=== PATIENT | female | born 1940 | race Caucasian/White ===

== ENCOUNTER 2019-05-14 09:19 | Outpatient (CLI) | payer MEDICARE, SELFPAY ==
--- NOTE | ~2019-05-14 | MR_ITS ---
EXAMINATION: MR lumbar spine wo con DATE: 05/14/2019 11:48 INDICATION: Low back pain TECHNIQUE: Magnetic resonance imaging (MRI) of the lumbar spine was performed without intravenous con trast. Sequences included sagittal T2-weighted FSE, sagittal T2-weighted FS FSE, sagittal T1-weighted FSE, and axial T2-weighted FSE. COMPARISON: Lumbar spine radiographs dated 02/04/[address] abdomen and pelvis dated 04/11/2019 FINDINGS: 2 mm retrolisthesis L1 on L2, 3 mm retrolisthesis L2 on L3, L3-4 millimeter anterolisthesis L3 on L4, 2-3 mm anterolisthesis L4 on L5 and 7 mm anterolisthesis L5 on S1. Marrow edema associated with an e karthik chronic T12 compression fracture with 20% anterior and central vertebral body height loss. T1 hy perintense hemangioma at L3. Severe disc height loss at L2-L3 and L5-S1. Moderate disc height loss at L3-L4 and mild disc height loss at T10-T11, L1-L2 and L4-L5. The conus medullaris terminates at L1. There is normal signal in the caudal spinal cord. Multiple T2 hyperintense parapelvic cysts at the ri ght kidney. Approximately 1 cm T2 hypointense proteinaceous/hemorrhagic cyst at the mid left kidney w ith corresponding increased density on prior noncontrast CT. Paravertebral soft tissues are otherwise unremarkable. The following disc levels are specifically discussed: T12-L1: The disc does not extend beyond the endplate margin. There is mild left and moderate right fa cet joint osteoarthritis. There is no neural foraminal stenosis. There is mild central canal stenosis resulting primarily from anterior bulging of the posterior epidural fat. L1-L2: Disc is mildly bulging. There is hypertrophy of the ligamentum flavum and anterior bulging of the posterior epidural fat pad. There is mild bilateral facet joint osteoarthritis. There is moderate bilateral neural foraminal stenosis. There is mild central canal stenosis. L2-L3: Disc is bulging. There is hypertrophy of the ligamentum flavum and anterior bulging of the pos terior epidural fat pad. There is moderate bilateral facet joint osteoarthritis. There is moderate to severe right and severe left neural foraminal stenosis. There is severe central canal stenosis. L3-L4: Disc is bulging with superimposed annular fissure and right paracentral disc extrusion which e xtends 7 mm cephalad to the level of the inferior endplate of L3. There is prominent hypertrophy of t he ligamentum flavum. There is moderate left and severe right facet joint osteoarthritis. There is mo derate left and moderate to severe right neural foraminal stenosis. There is moderate to severe centr al canal stenosis with minimal CSF signal surrounding the centrally bunched nerve roots. L4-L5: Annular fissure with broad-based disc extrusion extending from foraminal zone to foraminal zon e with disc material extending a few millimeters cephalad to the level of the inferior endplate of L4 . There is severe bilateral facet joint osteoarthritis. There is moderate left and moderate to severe right neural foraminal stenosis. There is mild central canal stenosis. L5-S1: Annular fissure with extrusion of minimal amount of residual disc material which extends sligh tly beyond the inferior endplate of L5 from foraminal zone to foraminal zone. There is severe bilater al facet joint osteoarthritis. There is moderate bilateral neural foraminal stenosis. There is no camron tral canal stenosis. IMPRESSION: 1. Marrow edema associated with an early chronic T12 compression fracture which was present on radiog raphs dated 02/04/2019. 2. Severe lumbar spondylosis. Reviewed, dictated and finalized at location B. CISE PHYSIOLOGIST CERTIFIED IMPRESSION: 1. Marrow edema associated with an early chronic T12 compression fracture which was present on radiographs dated 02/04/2019. 2. Virgen
[2019-05-14 11:08] LABS: Blood Urea Nitrogen 24 mg/dL (8-26); Estimated Glomerular Filt Rate > 60
== END 2019-05-14 09:20 | disposition home or self-care (01) ==
LOC: ANHIMG 09:22
PROVIDERS: PCP Emergency Medicine
DX: M54.5 Low back pain (principal); M79.89 Other specified soft tissue disorders; M48.54XA Collapsed vertebra, not elsewhere classified, thoracic region, initial encounter for fracture; M47.814 Spondylosis without myelopathy or radiculopathy, thoracic region
CPT/HCPCS: 36415; 72148

== ENCOUNTER 2019-05-14 09:28 | Outpatient (CLI) | payer MEDICARE, SELFPAY ==
--- NOTE | ~2019-05-14 | MR_ITS ---
EXAMINATION: MR brain/brain stem wo/w con EXAM DATE: 05/14/2019 11:49 INDICATION: Meningioma follow-up. TECHNIQUE: Magnetic resonance imaging (MRI) of the brain/brain stem obtained without contrast. Sagit jannet T1, axial diffusion, gradient echo (T2*), T1, T2, FLAIR sequences obtained. Patient was then inj ected with 14 cc intravenous Multihance contrast. Axial and coronal postcontrast T1 weighted sequence s obtained. Correlation is made to CTA brain 01/22/2017. FINDINGS: There is been interval left frontal craniotomy, underlying moderate-sized encephalomalacia. Previously seen mass along the left side of the falx is no longer identified. There is some enhancem ent within the encephalomalacia, difficult to measure given shape of this, but its approximately 10 m m in diameter by 3 mm in thickness. Most likely postoperative scarring/enhancement but if histology o f the resected meningioma was more aggressive then consider 6-12 month follow-up MRI examination. No other areas of abnormal enhancement. There is mild to moderate microangiopathy and cerebral atroph y. No acute infarction, extra-axial collections or hydrocephalus. Bilateral cataract surgery. IMPRESSION: 1. Interval left frontal craniotomy, underlying encephalomalacia containing small region of enhancem ent most likely postoperative scarring but if clinically indicated a follow up 6-12 month MRI should be considered. 2. Age-related findings. Reviewed, dictated and finalized at location A. NDS HANDLER IMPRESSION: 1. Interval left frontal craniotomy, underlying encephalomalacia containing sm all region of enhancement most likely postoperative scarring but if clinically indicated a follow up 6-12 month MRI should be considered. 2. Age-related findings.
== END 2019-05-14 09:29 | disposition home or self-care (01) ==
PROVIDERS: PCP Emergency Medicine
DX: D32.9 Benign neoplasm of meninges, unspecified (principal); G93.89 Other specified disorders of brain; Z98.890 Other specified postprocedural states
CPT/HCPCS: 36415; 70553; 72148; A9577

== ENCOUNTER 2019-08-20 09:27 | Outpatient (CLI) | payer MEDICARE, SELFPAY ==
--- NOTE | ~2019-08-20 | MM_ITS ---
EXAMINATION: MM screening gina BI w bharati HISTORY: Screening mammogram TECHNIQUE: Craniocaudal and mediolateral oblique 3-D tomosynthesis images were obtained and synthetic 2-D images were generated. CAD analysis was submitted and interpreted. COMPARISON: 12/01/2008, 06/21/2007 BREAST PARENCHYMAL COMPOSITION: The breasts are almost entirely fatty. FINDINGS: Scattered benign-appearing calcifications are present. There is no evidence of suspicious m ass, calcification, or architectural distortion to suggest malignancy in either breast. There has bee n no suspicious interval change. IMPRESSION: 1. No mammographic evidence of malignancy. 2. Recommend routine screening mammography while the patient remains in good health. BI-RADS Category 2: Benign finding(s). Reviewed, dictated and finalized at location A. LOADING MACHINE FEEDER IMPRESSION: 1. No mammographic evidence of malignancy. 2. Recommend routine screening mammography while the patient remains in good he alth. BI-RADS Category 2: Benign finding(s).
== END 2019-08-20 09:28 | disposition home or self-care (01) ==
LOC: ANHIMG 09:29
PROVIDERS: PCP Emergency Medicine; Visit Provider Emergency Medicine
DX: Z12.31 Encounter for screening mammogram for malignant neoplasm of breast (principal)
CPT/HCPCS: 77063; 77067

== ENCOUNTER 2020-01-09 14:30 | Outpatient (RCR) | payer MEDICARE, SELFPAY ==
--- NOTE | 2019-12-25 11:16 | PTOPEVAL ---
Thank you for referring Nelly Mcgrath to [facility]. Please review, sign, date and return this plan of care SASHA. Pt referred to therapy due to a complex medical history and impairments. She requires additional skilled therapy to address decreased balance, decreased performance with transfers and walking activities, muscle weakness and tolerance with activities. Recommend additional PT 2x/wk x 6 wk. I agree with and certify that the following plan of care is medically necessary. Referring Physician Date Attending Provider: Selvin Henley MD *PT Outpatient Evaluation Start: 12/25/19 09:58 Freq: Status: Active Protocol: Document 12/25/19 10:00 CAP (Rec: 12/25/19 11:03 CAP [id number]) Therapy Assessment Status Assessment Status Assessment Status Evaluation Outpatient Past Medical History Past Medical History Source of Past Medical History Patient Neurological History Hx Other Neurological Disorders Yes: brain tumor 04/18 Cardiovascular History Hx Hypertension Yes Respiratory History Hx Sleep Apnea Yes: cpap machine Gastrointestinal History Hx Gastroesophageal Reflux Disease Yes Genitourinary History Hx Urinary Tract Infection Yes Hx Other Genitourinary Disorders Yes: incontinece Musculoskeletal History Hx Back Pain Yes Hx Joint Replacement Yes: haritha TKR Hematological History Hx Other Hematological Disorders Yes: DVT right leg HEENT History Hx Cataracts Yes Other History 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 Family She had therapy for her back pain in 2016 with some relief of her back pain. Reports she is stiff in the morning for her back and knee. She fell down last December at [facility] when the floor was wet. She had a compression fracture of ~T12. She wore a back brace for 6 wks. She has not had a f/u xray of her back fracture. She denies any falls at home in the past 6 months She spends most of her day in
--- NOTE | 2020-01-01 14:41 | PCPTNOTE ---
Patient came in, wasn't feeling well & decided she couldn't stay. So, she cancelled scheduled appointment this date.[ ]
--- NOTE | 2020-01-13 08:42 | PCPTNOTE ---
Patient called & cancelled scheduled appointment this date due to sick.
--- NOTE | 2020-01-15 09:46 | PCPTNOTE ---
Patient called & cancelled scheduled appointment this date due to not feeling well. She cancelled her remaining appointments. Will plan to DC pt at this time.
--- NOTE | 2020-01-15 10:19 | PTOPEVAL ---
Thank you for referring Nelly Mcgrath to [facility]. Please review, sign, date and return this plan of care SASHA. I agree with and certify that the following plan of care is medically necessary. Referring Physician Date Admitting Provider: Attending Provider: Selvin Henley MD Referring Provider: *PT Outpatient Evaluation Start: 12/25/19 09:58 Freq: Status: Active Protocol: Document 12/25/19 10:00 CAP (Rec: 12/25/19 11:03 CAP [email or web address]) Therapy Assessment Status Assessment Status Assessment Status Evaluation Outpatient Past Medical History Past Medical History Source of Past Medical History Patient Neurological History Hx Other Neurological Disorders Yes: brain tumor 04/18 Cardiovascular History Hx Hypertension Yes Respiratory History Hx Sleep Apnea Yes: cpap machine Gastrointestinal History Hx Gastroesophageal Reflux Disease Yes Genitourinary History Hx Urinary Tract Infection Yes Hx Other Genitourinary Disorders Yes: incontinece Musculoskeletal History Hx Back Pain Yes Hx Joint Replacement Yes: haritha TKR Hematological History Hx Other Hematological Disorders Yes: DVT right leg HEENT History Hx Cataracts Yes Other History 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 Family She had therapy for her back pain in 2016 with some relief of her back pain. Reports she is stiff in the morning for her back and knee. She fell down last December at [facility] when the floor was wet. She had a compression fracture of ~T12. She wore a back brace for 6 wks. She has not had a f/u xray of her back fracture. She denies any falls at home in the past 6 months She spends most of her day in a recliner, then is stiff and left leg not wanting to work. Pt tends to look down when
--- NOTE | 2020-01-15 10:19 | PCPTNOTE ---
Admitting Provider: Attending Provider: Selvin Henley MD Patient:Nelly Mcgrath Date of :1940 Patient has not returned for any further treatments since 01/09/2020, therefore she will be discharged at this time. Patient?s initial visit was on 12/25/2019 10:15 and she had a total of 4 visits then she called to cancel her remaining appointments. Limited progress towards improved function due to only 4 visits of therapy. The goals have been not met. Thank you for referring this patient to [facility]. Please review, sign, date and return this discharge summary SASHA. I have been updated about the patient's current status and I agree with discharge from the above service at this time. Referring Physician Date
== END 2020-03-09 14:05 | disposition home or self-care (01) ==
LOC: ANHPT 14:30
PROVIDERS: PCP Emergency Medicine; Visit Provider Emergency Medicine
DX: M54.9 Dorsalgia, unspecified (principal); M25.559 Pain in unspecified hip; G89.29 Other chronic pain; R53.81 Other malaise; R53.1 Weakness
CPT/HCPCS: 97110; 97163; 97530

== ENCOUNTER 2020-11-24 09:48 | Outpatient (CLI) | payer MEDICARE, SELFPAY ==
--- NOTE | ~2020-11-24 | MM_ITS ---
EXAMINATION: MM screening gina BI w bharati HISTORY: Screening mammogram TECHNIQUE: Craniocaudal and mediolateral oblique 3-D tomosynthesis images were obtained and synthetic 2-D images were generated. CAD analysis was submitted and interpreted. COMPARISON: , 12/01/2008 bilateral digital screening mammogram examinations BREAST PARENCHYMAL COMPOSITION: The breasts are almost entirely fatty. FINDINGS: There is no evidence of suspicious mass, calcification, or architectural distortion to sugg est malignancy in either breast. There has been no suspicious interval change. IMPRESSION: 1. No mammographic evidence of malignancy. 2. Recommend routine screening mammography in one year. BI-RADS Category 1: Negative Reviewed, dictated and finalized at location A.
== END 2020-11-24 09:49 | disposition home or self-care (01) ==
LOC: ANHIMG 09:51
PROVIDERS: PCP Emergency Medicine; Visit Provider Emergency Medicine
DX: Z12.31 Encounter for screening mammogram for malignant neoplasm of breast (principal)
CPT/HCPCS: 77063; 77067

== ENCOUNTER 2020-11-28 10:56 | Emergency (ER) | payer MEDICARE, SELFPAY ==
[2020-11-28 10:59] VITALS: BP 141/65; PULSE 71; RESP 18; TEMP 36.6; O2SAT 97
--- NOTE | 2020-11-28 11:56 | ED.DENTAL ---
HPI - Dental/Oral General Chief complaint: Dental/Oral Stated complaint: right eye swelling Time Seen by Provider: 11/28/20 11:29 Source: patient and family Mode of arrival: ambulatory Limitations: no limitations History of Present Illness HPI Narrative: This is an 80-year-old female that presents to the emergency department for right-sided facial swelling present since this morning. Reports she is currently on clindamycin for a dental infection. Reports when she woke up this morning she noted some right-sided redness below her eye. She has been taking antibiotic as prescribed. Denies fevers, dysphagia, or dyspnea. MD Complaint: tooth pain Location: Tooth # (3) Related Data Home Medications Medication Instructions Recorded Confirmed cetirizine 10 mg tablet 5 mg PO DAILY PRN 06/19/19 10/22/20 gabapentin 100 mg capsule 100 mg PO TID 06/19/19 10/22/20 multivitamin 1 tablet PO .Daily with food 06/19/19 10/22/20 tablet temazepam 15 mg capsule 15 mg PO .Daily at bedtime cap 06/19/19 10/22/20 tramadol 50 mg tablet 50 mg PO Q6H PRN 06/19/19 10/22/20 vit C 250 mg-vit E 90 mg-zinc 40 1 tablet PO .Daily cap 06/19/19 10/22/20 mg-copper 1 [id number] capsule calcium carbonate 500 mg calcium See Rx Instructions .ROUTE .COMPLEX 12/15/19 10/22/20 (1,250 mg) tablet docusate sodium 250 mg capsule 250 mg PO DAILY 12/17/19 10/22/20 melatonin 1 mg tablet 1 mg PO DAILY PRN tablet 12/17/19 10/22/20 polyethylene glycol 400 0.25 % eye See Rx Instructions EACH EYE BID 12/17/19 10/22/20 drops ml diphenhydramine HCl 25 mg capsule 25 mg PO ONCE PRN cap 04/27/20 10/22/20 oxybutynin chloride 5 mg tablet 10 mg PO DAILY tablet 04/27/20 10/22/20 Allergies Allergy/AdvReac Type Severity Reaction Status Date / Time No Known Allergies Allergy Verified 11/28/20 11:22 Review of Systems Review of Systems: Narrative: CONSTITUTIONAL: Denies fever ENT: Reports dentalgia All systems reviewed & are unremarkable except as noted in HPI and below PMFSH Past Medical History Medical History (Updated 11/28/20 @ 13:52 by Leigha Lebron PA-C) Afib GERD (gastroesophageal reflux disease) HLD (hyperlipidemia) Meningioma Family History Family History Father Acute myocardial infarction, Onset Age: 76 Mother Carcinoma of colon, Onset Age: 68 Social History Social History Smoking status: Never smoker Alcohol intake: never Substance use: never Gender identity (if verbalized by the patient): Female Exam Narrative: Exam Narrative: GENERAL: Elderly, well-nourished, and in no acute distress. HEAD: Normocephalic, atraumatic. Mild right sided facial redness below the eye EYES: EOMI. ENT: Nares clear, no rhinorrhea or epistaxis. Mucous membranes moist. Oropharynx without tonsillar hypertrophy exudate or other lesions. Tooth number 3 tender to palpation with surrounding erythema and fluctuance consistent with likely abscess. Floor of mouth is soft. No trismus. Bilateral TMs pearly singer non-bulging NECK: Supple. No adenopathy or masses. CHEST: Clear to auscultation. No respiratory distress. No wheezes rales or rhonchi HEART: Regular rate and rhythm. No murmur heard. Normal peripheral pulses. EXTREMITIES: Normal range of motion. No edema. SKIN: Warm, dry, no rash. NEURO: No focal deficits. Alert and oriented x3. PSYCH: Normal mood and affect Course Vital Signs Vital signs: Vital Signs Temperature 98 F 11/28/20 10:59 Pulse Rate 71 11/28/20 10:59 Respiratory Rate 18 11/28/20 10:59 Blood Pressure 141/65 H 11/28/20 10:59 Pulse Oximetry 97 11/28/20 10:59 Temperature 98 F 11/28/20 10:59 Pulse Rate 71 11/28/20 10:59 Respiratory Rate 18 11/28/20 10:59 Blood Pressure 141/65 H 11/28/20 10:59 Pulse Oximetry 97 11/28/20 10:59 Procedures Abscess I/D oral:
[2020-11-28 13:53] VITALS: BP 138/76; PULSE 56; RESP 14; O2SAT 98
== END 2020-11-28 14:15 | disposition home or self-care (01) ==
PROVIDERS: Emergency Provider Emergency Medicine; PCP Emergency Medicine
DX: K04.7 Periapical abscess without sinus (principal); I48.91 Unspecified atrial fibrillation; K21.9 Gastro-esophageal reflux disease without esophagitis; E78.5 Hyperlipidemia, unspecified
CPT/HCPCS: 41800; 99282

== ENCOUNTER 2020-12-01 12:55 | Outpatient (CLI) | payer MEDICARE, SELFPAY ==
--- NOTE | ~2020-12-01 | MR_ITS ---
EXAMINATION: MR brain/brain stem wo/w con DATE: 12/01/2020 14:12 INDICATION: Meningioma. TECHNIQUE: Magnetic resonance imaging (MRI) of the brain and brainstem was performed without and with 20 mL MultiHance intravenous contrast. Sequences included sagittal and axial T1-weighted FSE, axial diffusion-weighted FS EPI, axial T2*-weighted GRE, axial T2-weighted FLAIR Propeller, and axial T2-we ighted Propeller. Postcontrast sequences included axial, sagittal, and coronal T1-weighted FSE. Appar ent diffusion coefficient (ADC) maps were created. COMPARISON: Brain MRI 05/14/2019, head CT 01/22/2017 FINDINGS: There is chronic encephalomalacia in left frontal lobe with old blood products. Within this area, there is a 14 x 6 mm mass with contrast enhancement. There are changes of overlying craniotomy . There are scattered areas of nonspecific increased T2-weighted signal intensity in the cerebral whi te matter. There is no acute ischemic infarct or abnormal mass lesion. There is ex vacuo dilatation o f frontal horn of left lateral ventricle. There are likely changes of ocular lens replacement surgeri es. There is mild mucosal thickening in the paranasal sinuses. The mastoid air cells are normal. IMPRESSION: 1. Chronic encephalomalacia in left frontal lobe with old blood products. A stable 14 x 6 mm mildly e nhancing mass within this volume is most likely granulation tissue, but neoplasm cannot be excluded. 2. Stable moderate nonspecific cerebral white matter disease, which likely represents chronic small v essel ischemic disease. Reviewed, dictated and finalized at location A. IMPRESSION: 1. Chronic encephalomalacia in left frontal lobe with old blood products. A sta ble 14 x 6 mm mildly enhancing mass within this volume is most likely granulati on tissue, but neoplasm cannot be excluded. 2. Stable moderate nonspecific cerebral white matter disease, which likely repr esents chronic small vessel ischemic disease.
[2020-12-01 13:37] LABS: Estimated Glomerular Filt Rate > 60
== END 2020-12-01 12:56 | disposition home or self-care (01) ==
PROVIDERS: PCP Emergency Medicine
DX: D32.9 Benign neoplasm of meninges, unspecified (principal); R93.0 Abnormal findings on diagnostic imaging of skull and head, not elsewhere classified
CPT/HCPCS: 70553; A9577

== ENCOUNTER 2021-01-05 09:49 | Outpatient (CLI) | payer MEDICARE, SELFPAY ==
--- NOTE | ~2021-01-05 | DEXA_ITS ---
Bone Density Report Name: Nelly Mcgrath Age: 80 Sex: Female Ethnicity: White Date of : 1940 Indication: postmenopausal; height loss; Referring Provider: STEPHANY POTTER Study: Bone densitometry was performed. Exam Date: January 05, 2021 Accession number: [id number] Bone Density: Region BMD T-score Z-score Classification AP Spine (L2, L3, L4) 1.151 0.7 3.5 Normal Femoral Neck (Left) 0.658 -1.7 0.7 Osteopenia Total Hip (Left) 0.886 -0.5 1.7 Normal Total Hip Bilateral Avg 0.897 -0.4 1.8 Normal Femoral Neck (Right) 0.735 -1.0 1.4 Normal Total Hip (Right) 0.906 -0.3 1.9 Normal World Health Organization criteria for BMD impression classify patients as: Normal (T-score at or above -1.0), Osteopenia (T-score between -1.0 and -2.5), or Osteoporosis (T-score at or below -2.5). 10-year Fracture Risk(1): Major Osteoporotic Fracture 12% Hip Fracture 3.2% Reported Risk Factors: [place] (), Neck BMD=0.658, BMI=42.5 (1) FRAX(R) Version 3.08. Fracture probability calculated for an untreated patient. Fracture probability may be lower if the patient has received treatment. Previous Exams: Region Exam Age BMD T-score BMD Change BMD Change Date g/cm2 vs Baseline vs Previous AP Spine(L2, L3, L4) 01/05/2021 80 1.151 0.7 0.124(12.1%)# 0.100(9.5%)* 07/26/2016 76 1.051 -0.3 0.024(2.4%)# 0.101(10.6%)# 01/23/2008 67 0.951 -1.2 -0.076(-7.4%)* -0.076(-7.4%)* 11/04/2005 65 1.027 -0.5 Total Hip(Left) 01/05/2021 80 0.886 -0.5 -0.054(-5.7%)# -0.041(-4.4%)* 07/26/2016 76 0.927 -0.1 -0.013(-1.4%)# 0.014(1.5%)# 01/23/2008 67 0.913 -0.2 -0.027(-2.9%) -0.027(-2.9%) 11/04/2005 65 0.940 0.0 Total Hip(Right) 01/05/2021 80 0.906 -0.3 -0.029(-3.1%)# -0.010(-1.0%) 07/26/2016 76 0.916 -0.2 -0.019(-2.1%)# -0.001(-0.2%)# 01/23/2008 67 0.917 -0.2 -0.018(-1.9%) -0.018(-1.9%) 11/04/2005 65 0.935 -0.1 *Denotes significance at 95% confidence level, LSC for AP Spine = 0.022 g/cm2, LSC for Total Hip = 0.027 g/cm2 Clinical Information Provided by Patient: Has used the following medications: Vitamin D, Calcium Patient maximum height was 62 Menopause Age: 43 No regular weight bearing exercise Onset of menses at age 13 Number of children 2 Impression: The patient has low bone mass, based on the Left Femoral Neck T-score. The patient has an estimated ten-year risk of hip fracture of 3.2%
== END 2021-01-05 09:50 | disposition home or self-care (01) ==
PROVIDERS: PCP Emergency Medicine; Visit Provider Emergency Medicine
DX: Z78.0 Asymptomatic menopausal state (principal); M85.852 Other specified disorders of bone density and structure, left thigh
CPT/HCPCS: 77080

== ENCOUNTER 2022-01-27 13:17 | Outpatient (CLI) | payer MEDICARE, SELFPAY ==
--- NOTE | ~2022-01-27 | MR_ITS ---
EXAMINATION: MR brain/brain stem wo/w con DATE: 01/27/2022 14:21 INDICATION: History of brain meningioma TECHNIQUE: Magnetic resonance imaging (MRI) of the brain and brainstem was performed without intraven ous contrast. Sequences included sagittal and axial T1-weighted SE, axial diffusion-weighted FS SE, a xial T2*-weighted GRE, axial T2-weighted FLAIR Propeller, and axial T2-weighted Propeller. Apparent d iffusion coefficient (ADC) maps were created. COMPARISON: MRI dated 12/01/2020 and 05/14/2019. FINDINGS: Stable chronic encephalomalacia left frontal lobe with old blood products. There is heterog eneous enhancement within the area of the seventh which is unchanged from prior studies, likely granu lation tissue. There is overlying craniotomy defect. Generalized atrophy. There are scattered moderat e periventricular and subcortical white matter changes, most likely related to small vessel ischemic disease (microangiopathy). There is ex vacuo dilation frontal horn left lateral ventricle. Orbits are symmetric without disconjugate gaze. Mild mucosal thickening right maxillary sinus. Structures of th e posterior fossa are unremarkable. IMPRESSION: 1. No acute intracranial abnormality. Chronic encephalomalacia of the left frontal lobe with old bloo d products. Heterogeneous enhancement within the encephalomalacia is noted without significant change , likely granulation tissue although neoplasm is not entirely excluded. 2: Stable chronic age-related findings. Reviewed, dictated and finalized at location A. IMPRESSION: 1. No acute intracranial abnormality. Chronic encephalomalacia of the left fron jannet lobe with old blood products. Heterogeneous enhancement within the encephal omalacia is noted without significant change, likely granulation tissue althoug h neoplasm is not entirely excluded. 2: Stable chronic age-related findings.
[2022-01-27 13:59] LABS: Estimated Glomerular Filt Rate > 60
== END 2022-01-27 13:18 | disposition home or self-care (01) ==
PROVIDERS: PCP Emergency Medicine; Visit Provider Emergency Medicine
DX: Z86.011 Personal history of benign neoplasm of the brain (principal); G93.89 Other specified disorders of brain
CPT/HCPCS: 70553; A9577

== ENCOUNTER 2022-02-07 07:06 | Outpatient (CLI) | payer MEDICARE, SELFPAY ==
--- NOTE | ~2022-02-07 | MR_ITS ---
EXAMINATION: MR lumbar spine wo con DATE: 02/07/2022 08:14 INDICATION: Other low back pain. TECHNIQUE: Magnetic resonance imaging (MRI) of the lumbar spine was performed without intravenous con trast. Sequences included sagittal T2-weighted FSE, sagittal T2-weighted FS FSE, sagittal T1-weighted FSE, and axial T2-weighted FSE. COMPARISON: Lumbar spine MRI 05/14/2019 FINDINGS: There are chronic bilateral L5 pars defects. There is 8 mm anterolisthesis of L5 on S1. The re is a chronic burst fracture of T12 superior endplate with 2/5 loss of height and retropulsion of b one 2 mm into central spinal canal. There is 3 mm retrolisthesis of L1 on L2, 4 mm retrolisthesis of L2 on L3, and 3 mm anterolisthesis of L3 on L4 and L4 on L5. There is severely decreased disc height at L2-L3 and L3-L4, mildly decreased disc height at L4-L5, and severely decreased disc height at L5-S 1. Epidural lipomatosis is noted. There is ligamentum flavum hypertrophy at the disc levels from L1-L 2 through L3-L4. The distal spinal cord signal intensity is normal. The conus medullaris is at L1. Th e following disc levels are specifically discussed: L1-L2: The disc is bulging and has an annular fissure. There is moderate bilateral facet joint osteoa rthritis. There is mild right and moderate left neural foraminal stenosis. There is mild central dunia l stenosis. L2-L3: The disc is bulging and has an annular fissure. There is severe bilateral facet joint osteoart hritis. There is moderate bilateral neural foraminal stenosis. There is mild central canal stenosis. L3-L4: The disc is bulging and has an annular fissure. There is severe bilateral facet joint osteoart hritis. There is moderate bilateral neural foraminal stenosis. There is mild central canal stenosis. L4-L5: The disc is bulging. There is severe bilateral facet joint osteoarthritis. There is moderate r ight and mild left neural foraminal stenosis. There is mild central canal stenosis. L5-S1: The disc does not extend beyond the endplate margin. There is severe bilateral facet joint ost eoarthritis. There is mild bilateral neural foraminal stenosis. There is no central canal stenosis. IMPRESSION: 1. Severe lumbar spondylosis, stable from 05/14/2019. Reviewed, dictated and finalized at location A.
== END 2022-02-07 07:07 | disposition home or self-care (01) ==
PROVIDERS: PCP Emergency Medicine; Visit Provider Nurse Practitioner Family
DX: M47.896 Other spondylosis, lumbar region (principal)
CPT/HCPCS: 72148

== ENCOUNTER 2022-04-06 10:08 | Outpatient (CLI) | payer MEDICARE, SELFPAY ==
--- NOTE | ~2022-04-06 | US_ITS ---
EXAMINATION: US carotid duplex BI DATE: 04/06/2022 11:13 INDICATION: Encounter for screening for cardiovascular disorder. Carotid artery atherosclerosis and s tenosis. TECHNIQUE: Grayscale, color Doppler, and pulsed Doppler images of the cervical carotid arteries were obtained. The degree of vessel stenosis is placed in one of the following categories: normal, <50%, 5 0-69%, >=70% but less than near-occlusion, near-occlusion, or total occlusion. Note that percent sten osis relative to normal distal artery lumen diameter is indirectly measured from velocity measurement s as described by Wilberto, et al. Radiology 2003; 229:340-346. COMPARISON: Carotid CT angiogram dated 01/22/2017 FINDINGS: RIGHT: The right common carotid artery (CCA) peak systolic velocity (PSV) is 62 cm/s. The right internal car otid artery (ICA) PSV is 90 cm/s. The right ICA end-diastolic velocity (EDV) is 16 cm/s. The right IC A/CCA PSV ratio is 1.5. Grayscale and color Doppler images yield an estimate of <50% diameter reducti on from plaque in the ICA. The external carotid artery (ECA) PSV is 119 cm/s. There is antegrade flow in the right vertebral artery. LEFT: The left CCA PSV is 90 cm/s. The left ICA PSV is 103 cm/s. The left ICA EDV is 27 cm/s. The left ICA/ CCA PSV ratio is 1.1. Grayscale and color Doppler images yield an estimate of <50% diameter reduction from plaque in the ICA. The ECA PSV is 107 cm/s. There is antegrade flow in the left vertebral arter y. IMPRESSION: 1. <50% stenosis in the right internal carotid artery. 2. <50% stenosis in the left internal carotid artery. Reviewed, dictated and finalized at location A.
== END 2022-04-06 10:09 | disposition home or self-care (01) ==
PROVIDERS: PCP Emergency Medicine; Visit Provider Emergency Medicine
DX: I65.23 Occlusion and stenosis of bilateral carotid arteries (principal); R09.89 Other specified symptoms and signs involving the circulatory and respiratory systems; Z13.6 Encounter for screening for cardiovascular disorders
CPT/HCPCS: 93880

== ENCOUNTER 2022-10-13 08:59 | Outpatient (CLI) | payer MEDICARE, SELFPAY ==
--- NOTE | 2022-10-13 09:12 | ECHO_ITS ---
Patient Info Name: Nelly Mcgrath Age: 82 years : 1940 Gender: Female Ht: 62 in Wt: 220 lbs BSA: 2.14 m2 HR: 68 bpm BP: 141 / 63 mmHg Technical Quality: Fair Exam Date: 10/13/2022 9:29 AM Exam Location: [facility] Patient Status: Outpatient Admit Date: 10/13/2022 Staff Ordering Physician: Ernie Sanchez DO Attending Provider: Ernie Sanchez DO Referring Physician: Daniel RATLIFF; Exam Type: CA echo doppler color flow Study Info Indications R06.09 - Other forms of dyspnea Complete two-dimensional, color flow and Doppler transthoracic echocardiogram is performed. Summary 1. Complete two-dimensional, color flow and Doppler transthoracic echocardiogram is performed. 2. Left ventricular chamber dimension is normal. 3. Left ventricular systolic function is normal, estimated at 60-65%. 4. The left ventricular diastolic function is grade I diastolic dysfunction. 5. E/e' 11 is mildly elevated. 6. Left atrial chamber dimension is moderately enlarged. 7. There is mild aortic valve sclerosis. 8. The mitral valve has moderately calcified annulus. 9. There is mild mitral valve regurgitation. 10. There is mild to moderate tricuspid valve regurgitation. 11. Severe pulmonary hypertension, estimated pulmonary arterial systolic pressure is 64 mmHg. 12. There is trace pulmonic regurgitation. Left Ventricle E/e' 11 is mildly elevated. Left ventricular chamber dimension is normal. Left ventricular systolic function is normal, estimated at 60-65%. The left ventricular diastolic function is grade I diastolic dysfunction. Right Ventricle Right ventricular systolic function is normal and with normal TAPSE 2.4 cm. Right ventricular chamber dimension is normal. Left Atria Left atrial chamber dimension is moderately enlarged. Right Atria Right atrial chamber dimension is normal. Aortic Valve The aortic valve is trileaflet. There is mild aortic valve sclerosis. There is no aortic valve stenosis. There is no aortic valve regurgitation. Pulmonic Valve There is trace pulmonic regurgitation. Mitral Valve The mitral valve has moderately calcified annulus. There is no mitral valve stenosis. There is mild mitral valve regurgitation. Tricuspid Valve There is mild to moderate tricuspid valve regurgitation. Severe pulmonary hypertension, estimated pulmonary arterial systolic pressure is 64 mmHg. Pericardium/Pleural There is no pericardial effusion. Inferior Vena Cava Normal inferior vena cava with >50% collapse upon inspiration consistent with normal right atrial pressure, 5 mmHg. Aorta The aortic root size at the sinus of Valsalva is normal. Left Ventricular Outflow Tract Name Value Normal LVOT 2D LVOT Diameter 2.0 cm LVOT Doppler LVOT Peak Gradient 6 mmHg LVOT Mean Gradient 3 mmHg LVOT VTI 29 cm LVOT VTI/AV VTI Ratio 0.7 LVOT Stroke Volume 91 ml LVOT CO 16.8 l/min LVOT CI 7.8 l
== END 2022-10-13 09:00 | disposition home or self-care (01) ==
PROVIDERS: PCP Emergency Medicine; Visit Provider Internal Medicine Cardiovascular Disease
DX: R06.09 Other forms of dyspnea (principal); I08.3 Combined rheumatic disorders of mitral, aortic and tricuspid valves; I27.20 Pulmonary hypertension, unspecified
CPT/HCPCS: 93306; C8929

== ENCOUNTER 2023-05-22 10:23 | Observation (INO) | payer MEDICARE, SELFPAY ==
[2023-05-22] VITALS (13 sets, daily range): BP systolic 140–181; BP diastolic 35–98; PULSE 48–76; RESP 14–20; TEMP 36.3–37.2; O2SAT 96–100; BMI 39.2
--- NOTE | ~2023-05-22 | XR_ITS ---
EXAMINATION: XR chest 1V portable DATE: 05/22/2023 11:32 INDICATION: Altered mental status. TECHNIQUE: A single frontal view of the chest was obtained. COMPARISON: Chest one view 01/22/2017 FINDINGS: There is mild atelectasis in the lower lung zones. No pleural effusion or pneumothorax. The heart size is normal. IMPRESSION: 1. Mild atelectasis in the lower lung zones. Reviewed, dictated and finalized at location E. ING AND ACCOUNTING STAFF ASSISTANT
--- NOTE | ~2023-05-22 | MR_ITS ---
EXAMINATION: MR brain/brain stem wo/w con DATE: 05/22/2023 17:45 INDICATION: TIA TECHNIQUE: Magnetic resonance imaging (MRI) of the brain and brainstem was performed without and with 19 cc MultiHance intravenous contrast. Sequences included sagittal and axial T1-weighted SE, axial d iffusion-weighted FS EPI ASSET, axial T2*-weighted GRE, axial T2-weighted FLAIR Propeller, and axial T2-weighted Propeller. Postcontrast axial sagittal and and coronal T1-weighted SE was obtained. Appar ent diffusion coefficient (ADC) maps were created. COMPARISON: CT brain and CTA brain carotid 05/22/2023; MR brain 01/27/2022. FINDINGS: Left frontal encephalomalacia, with old blood products and calcification. Overlying craniotomy defect . Ex vacuo dilatation of the left frontal horn. No abnormal enhancement. No abnormal restricted diffu roxi to suggest acute ischemic infarct. No MRI evidence of hemorrhage or extra-axial collection. No s uspicious foci of susceptibility to suggest prior intraparenchymal hemorrhage. Moderate patchy white matter hyperintensity, likely representing moderate small vessel ischemic disease. Mild generalized p arenchymal volume loss. The basilar cisterns are patent. Flow voids are preserved. Paranasal sinuses are within normal limits. Globes and orbital contents are within normal limits. IMPRESSION: No acute intracranial process. Reviewed, dictated and finalized at location K. T PERSON
--- NOTE | ~2023-05-22 | CT_ITS ---
EXAMINATION: CTA brain carotid DATE: 05/22/2023 10:36 INDICATION: Speech deficit. Acute altered mental status. TECHNIQUE: Computed tomographic angiography (CTA) of the head was performed with 100 mL Omnipaque-350 intravenous contrast. CTA of the neck was performed with intravenous contrast. Automated exposure co ntrol and iterative reconstruction technique were employed. The dose-length product was 1148.30 mGy-c m. Maximum intensity projection and volume rendered 3D-reconstructions were created by the technologi st on a separate workstation. COMPARISON: Head CT 05/22/23 FINDINGS: HEAD CTA: There is chronic encephalomalacia in left frontal lobe. There are changes of left-sided pourer crane ladle niotomy. There are scattered areas of low attenuation in the cerebral white matter. There is no intra cranial hemorrhage, acute infarction, or abnormal intracranial mass lesion. There is ex vacuo dilatat ion of frontal horn of left lateral ventricle. There are likely changes of ocular lens replacement amato rgeries. There is mild mucosal thickening in the paranasal sinuses. The mastoid air cells are normal. The vertebral arteries are codominant. There is no significant stenosis of basilar artery or the pos terior cerebral arteries. There is no significant stenosis of intracranial internal carotid arteries or anterior or middle cerebral arteries. Anterior communicating artery is normal. There is no aneurys m. Posterior communicating arteries are not identified. NECK CTA: The lungs demonstrate mild atelectasis. The central pulmonary arteries are enlarged, consis tent with pulmonary arterial hypertension. There are no pathologically enlarged lymph nodes. There is no significant stenosis of the vertebral arteries. There is plaque in the proximal internal carotid arteries. There is 0% stenosis of the proximal right internal carotid artery relative to normal dista l artery lumen diameter (NASCET criteria). There is 10% stenosis of the proximal left internal caroti d artery relative to normal distal artery lumen diameter. There is severe cervical and thoracic spond ylosis. IMPRESSION: 1. 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 2. Moderate nonspecific cerebral white matter disease, which likely represents chronic small vessel i schemic disease. 3. No aneurysm or significant intracranial arterial stenosis. 4. 0% stenosis of the proximal right internal carotid artery relative to normal distal artery lumen d iameter (NASCET criteria). 5. 10% stenosis of the proximal left internal carotid artery relative to normal distal artery lumen d iameter. Reviewed, dictated and finalized at location E. ENTER ROUGH IMPRESSION: 1. 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 2. Moderate nonspecific cerebral white matter disease, which likely represents chronic small vessel ischemic disease. 3. No aneurysm or significant intracranial arterial stenosis. 4. 0% stenosis of the proximal right internal carotid artery relative to normal distal artery lumen diameter (NASCET criteria). 5. 10% stenosis of the proximal left internal carotid artery relative to normal distal artery lumen diameter.
--- NOTE | ~2023-05-22 | CT_ITS ---
EXAMINATION: CT brain wo con DATE: 05/22/2023 10:31 INDICATION: Altered mental status. TECHNIQUE: Computed tomography (CT) of the head was performed without intravenous contrast. The mA wa s adjusted according to patient size. Iterative reconstruction technique was employed. The dose-lengt h product was 605.33 mGy-cm. COMPARISON: None FINDINGS: There is chronic encephalomalacia in left frontal lobe. There is no intracranial hemorrhage , acute infarction, or abnormal intracranial mass lesion. There are scattered areas of low attenuatio n in the cerebral white matter. There is ex vacuo dilatation of frontal horn of left lateral ventricl e. There is mild mucosal thickening in the paranasal sinuses. The mastoid air cells are normal. There are changes of anterior left craniotomy. IMPRESSION: 1. 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 2. Moderate nonspecific cerebral white matter disease, which likely represents chronic small vessel i schemic disease. Reviewed, dictated and finalized at location E. ANISM INSPECTOR IMPRESSION: 1. 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 2. Moderate nonspecific cerebral white matter disease, which likely represents chronic small vessel ischemic disease.
--- NOTE | 2023-05-22 10:22 | ECG_ITS ---
Measurements Intervals [place] Rate: 56 P: 54 ME: 260 QRS: -16 QRSD: 124 T: 29 QT: 401 QTc: 389 Interpretive Statements SINUS BRADYCARDIA WITH FIRST DEGREE AV BLOCK BORDERLINE R WAVE PROGRESSION, ANTERIOR LEADS BASELINE ARTIFACT- I, II, AVR, V4-V5 BORDERLINE ECG NO PREVIOUS ECG AVAILABLE FOR COMPARISON Electronically Signed On 05-22-2023 11:02:22 STORAGE WORKER by Ernie Sanchez D.O.
--- NOTE | 2023-05-22 10:26 | ED.AMS ---
HPI - Altered Mental Status General Chief Complaint: Altered Mental Status Stated Complaint: acute ams x 1 hour History of Present Illness HPI narrative: 83-year-old female presenting to the emergency department for evaluation of altered mental status. Family states that approximately 1 hour prior to arrival patient began having difficulty expressing herself. Patient denies any falls or injuries. Patient denies any cough cold or fevers. Patient denies any associated numbness or weakness. Patient has no prior history of CVA. Related Data Home Medications Medication Instructions Recorded Confirmed multivitamin 1 tablet PO .Daily with food 06/19/19 05/18/23 vit C 250 mg-vit E 90 mg-zinc 40 1 tablet PO .Daily 06/19/19 05/18/23 mg-copper 1 aw-jfaggl-pzviec capsule (PreserVision AREDS-2) oxybutynin chloride 5 mg tablet 10 mg PO DAILY 04/27/20 05/18/23 famotidine 20 mg tablet 20 mg PO DAILY 04/06/21 05/18/23 calcium carbonate 400 mg calcium 800 mg PO BID PRN 08/30/22 05/18/23 (1,000 mg) chewable tablet docusate sodium 250 mg capsule 250 mg PO DAILY 08/30/22 05/18/23 (Stool Softener) fiber 2 tablet PO BID 08/30/22 05/18/23 peg 400-propylene glycol 0.4 %-0.3 1 drp ophthalmic (eye) BID 08/30/22 05/18/23 % eye gel drops (Dry Eye Relief (propylene glycol-peg 400)) cholecalciferol (vitamin D3) 50 50 mcg PO DAILY 05/18/23 mcg (2,000 unit) capsule loratadine 10 mg tablet 10 mg PO DAILY 05/18/23 atorvastatin 20 mg tablet 20 mg DAILY 05/22/23 calcium carbonate 500 mg capsule 500 mg PO BID 05/22/23 cholecalciferol (vitamin D3) 50 50 mcg PO DAILY 05/22/23 mcg (2,000 unit) capsule (Vitamin D3) docusate sodium 250 mg capsule 250 mg PO DAILY 05/22/23 (Stool Softener) famotidine 20 mg tablet 20 mg PO DAILY 05/22/23 fiber 2 tablet PO DAILY 05/22/23 levetiracetam 500 mg tablet 500 mg PO BID 05/22/23 losartan 100 1 tablet PO DAILY 05/22/23 mg-hydrochlorothiazide 25 mg tablet metoprolol succinate 25 mg 25 mg PO DAILY 05/22/23 tablet,extended release 24 hr multivit with minerals-iron 18 1 tablet PO DAILY 05/22/23 mg-folic ac 400 mcg-vit K 25 mcg tablet (Adults Multivitamin) oxybutynin chloride 10 mg 10 mg PO DAILY 05/22/23 tablet,extended release 24 hr polyvinyl alcohol 1.4 % eye drops 1 drp BID 05/22/23 potassium chloride 10 mEq 20 meq PO BID 05/22/23 tablet,extended release rivaroxaban 20 mg tablet (Xarelto) 20 mg PO DAILY 05/22/23 sertraline 25 mg tablet 25 mg PO DAILY 05/22/23 vit C 250 mg-vit E 90 mg-zinc 40 1 cap PO DAILY 05/22/23 mg-copper 1 lw-kzovtz-iguukk capsule (PreserVision AREDS-2) Allergies Allergy/AdvReac Type Severity Reaction Status Date / Time No Known Allergies Allergy Verified 05/22/23 11:07 Review of Systems Review of Systems: All systems reviewed & are unremarkable except as noted in HPI and below PMFSH Past Medical History Medical History Chronic back pain Chronic constipation Chronic deep vein thrombosis (DVT) of popliteal vein of right lower extremity Depression Diastolic dysfunction GERD (gastroesophageal reflux disease) Grade II internal hemorrhoids HLD (hyperlipidemia) Hypertension Insomnia Meningioma Mixed stress and urge urinary incontinence Obstructive sleep apnea on CPAP Osteopenia of multiple sites PAF (paroxysmal atrial fibrillation) Vitamin D deficiency disease Surgical History Surgical History H/O excision of mass H/O hemorrhoidectomy HEMORRHOID BANDING 04/18/21 History of appendectomy 1942 History of cataract surgery History of cholecystectomy History of cranial surgery 04/03/2018 History of knee replacement Right knee replacement 2006 Left knee replacement 2015 Family History Family History Father Acute myocardial infarction, Onset Ag
[2023-05-22 10:59] LABS: Glucose Point of Care 78 mg/dl (65-105)
[2023-05-22 11:09] LABS: Basophils Percent Auto 0.6 % (0.2-1.2); Eosinophils Absolute Auto 0.2 K/mm3 (0-0.3); Eosinophils Percent Auto 2.2 % (0-4.4); Hemoglobin 10.1 g/dL (12.0-15.0); Immature Granulocyte Absolute 0.02 K/mm3 (0.00-0.031); Immature Granulocyte Percent A 0.3 % (0-0.5); Lymphocytes Absolute Auto 2.03 K/mm3 (0.9-3.2); Lymphocytes Percent Auto 27.9 % (18.3-44.2); Mean Corpuscular HGB Conc 28.9 g/dl (32-36); Mean Corpuscular Hemoglobin 23.8 pg (26-34); Mean Corpuscular Volume 82.4 fl (80-100); Mean Platelet Volume 10.9 fl (7.4-10.4); Monocytes Absolute Auto 0.9 K/mm3 (0.1-0.6); Monocytes Percent Auto 11.8 % (2.6-8.5); Neutrophils Absolute Auto 4.2 K/mm3 (1.3-6.7); Neutrophils Percent Auto 57.2 % (45.5-73.1); Platelet Count Result 181 k/mm3 (150-375); Red Blood Count 4.25 M/mm3 (4.2-5.4); Red Cell Distribution Width 19.8 % (11.5-14.5); White Blood Count 7.3 K/mm3 (4.5-10.0)
[2023-05-22 11:19] LABS: Alanine Aminotransferase 14 U/L (6-35); Albumin Level 3.6 g/dL (3.5-5.1); Alkaline Phosphatase 91 U/L (38-126); Anion Gap 8 mmol/L (8-16); Aspartate Amino Transferase 19 U/L (14-36); Bilirubin,Total 0.4 mg/dL (0.2-1.3); Blood Urea Nitrogen 22 mg/dL (7-17); Calcium 9.4 mg/dL (8.4-10.2); Carbon Dioxide 26 mmol/L (22-30); Chloride 106 mmol/L (98-107); Estimated CRCL calculation 40 ml/min; Estimated Glomerular Filt Rate 53; Glucose 84 mg/dL (65-110); Sodium 140 mmol/L (137-145)
[2023-05-22 11:24] LABS: INR 1.6; Prothrombin Time 19.8 Seconds (11.1-14.7)
[2023-05-22 11:25] LABS: Partial Thromboplastin Time 33.9 SECONDS (22.3-36.8)
[2023-05-22 11:31] LABS: Hypochromasia 1+ (NORMAL); Ovalocytes 1+ (NORMAL); Platelet Estimate Adequate (Adequate); Schistocytes None Seen (NORMAL)
[2023-05-22 11:45] LABS: Influenza A QL RT-PCR Negative (Negative); Influenza B QL RT-PCR Negative (Negative); RSV RNA, RT-PCR Negative (Negative); SARS-CoV-2 RNA PCR Negative (Negative)
[2023-05-22 11:55] LABS: Troponin I < 0.012 ng/mL (0.000-0.034)
--- NOTE | 2023-05-22 13:40 | PM.IMHP ---
H&P: HPI History of Present Illness Date/Time: 05/22/23 13:40 Chief Complaint: AMS Narrative: 83 y/o F presents here with AMS with PMH of Afib, GERD, HLD, and meningioma. Patient presented to the emergency department with altered mental status. provided majority HPI due to patient's current cognition. He states that her LNK was 0830. the began eating breakfast around 930 a.m., during breakfast he noted that she became confused and would repetitively say I don't know . This continued for about 10 minutes, he then called EMS. After arrival to the emergency department, patient continued to experience same alteration and would repeatedly answer questions with I don't know . Without intervention, patient then began to speak normally and able to complete full sentences for a brief period, then had brief reoccurrence of repetitive statement and inability to complete sentences. it resolves but continued to have some intermittent dysarthria and tangential thinking redirection multiple times. Patient unable to provide reliable history or +/- symptoms. Did state that she is normally able to urinate without difficulty and currently cannot go. Denies dysuria or frequency. Denied any focal numbness or tingling. does not report any recent changes or alterations to her normal baseline or complaints that she has voiced. No previous history of CVA, does have history of meningioma. Review of Systems Review of Systems: All systems reviewed & are unremarkable except as noted in HPI and below PMFSH Past Medical History Medical History Chronic back pain Chronic constipation Chronic deep vein thrombosis (DVT) of popliteal vein of right lower extremity Depression Diastolic dysfunction GERD (gastroesophageal reflux disease) Grade II internal hemorrhoids HLD (hyperlipidemia) Hypertension Insomnia Meningioma Mixed stress and urge urinary incontinence Obstructive sleep apnea on CPAP Osteopenia of multiple sites PAF (paroxysmal atrial fibrillation) Vitamin D deficiency disease Surgical History Surgical History H/O excision of mass H/O hemorrhoidectomy HEMORRHOID BANDING 04/18/21 History of appendectomy 194 History of cataract surgery History of cholecystectomy History of cranial surgery 04/03/2018 History of knee replacement Right knee replacement 2007 Left knee replacement 2016 Family History Family History Father Acute myocardial infarction, Onset Age: 76 Mother Carcinoma of colon, Onset Age: 68 Son No problems noted. Son No problems noted. Son No problems noted. Social History Social History (Updated 05/22/23 @ 14:22 by aMriluz Dillon APRN) Social History: Currently lives with . Surrogate Decision Maker: Hayes Mcgrath, spouse. Code Status: Full Code. 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
[2023-05-22 14:09] LABS: Appearance Urine Clear (Clear); Bacteria Urine 4+ /hpf; Bilirubin Urine Negative (Negative); Blood Urine Negative (Negative); Color Urine Yellow (Yellow); Glucose Urine UA Negative (Negative); Ketones Urine Negative (Negative); Leukocyte Esterase Ur 1+ LEU/UL (Negative); Nitrate Urine Positive (Negative); Non Pathogenic Casts 0-2; Protein Urine Negative (Negative); RBC Urine 0-2 /hpf (0-2); Squamous Epithelial Cell Urine None seen /hpf (Few); Urobilinogen Urine 0.2 mg/dL (<2.0); pH Urine 5.5 (5.0-9.0)
[2023-05-22 14:14] LABS: Add Urine Microscopic? YES
--- NOTE | 2023-05-22 15:06 | ADMGEN ---
This patient, Nelly Mcgrath, was admitted to IMU Room 205-01. Patient/family oriented to hospital policies and general routines including ID bracelet, bed and alarms, visiting hours, pain management, procedures, bathroom and other care routines, personal items, smoking policy, room service/diet, and visiting hours. Information on how to activate the Rapid Response Team has been discussed. Patient/Family are encouraged to report perceived risks to care and to ask questions if they do not understand what they are told or what they should do.
[2023-05-22] MEDS: RIVAROXABAN 20 MG TABLET PO (23:44)
[2023-05-22] MEDS: LACTATED RINGERS 1,000 ML 100 ML IV CONT (23:44)
[2023-05-23] VITALS (13 sets, daily range): BP systolic 120–149; BP diastolic 45–53; PULSE 53–81; RESP 16–18; TEMP 36.4–36.9; O2SAT 90–98
[2023-05-23 05:20] LABS: Hematocrit 32.8 % (37.0-47.0); Hemoglobin 9.5 g/dL (12.0-15.0); Mean Corpuscular Hemoglobin 23.2 pg (26-34); Mean Corpuscular Volume 80.2 fl (80-100); Platelet Count Result 180 k/mm3 (150-375); Red Blood Count 4.09 M/mm3 (4.2-5.4); Red Cell Distribution Width 19.6 % (11.5-14.5)
[2023-05-23 05:37] LABS: Anion Gap 6 mmol/L (8-16); Blood Urea Nitrogen 18 mg/dL (7-17); Calcium 9.4 mg/dL (8.4-10.2); Carbon Dioxide 29 mmol/L (22-30); Chloride 107 mmol/L (98-107); Estimated CRCL calculation 41 ml/min; Estimated Glomerular Filt Rate 53; Glucose 88 mg/dL (65-110); Potassium 4.2 mmol/L (3.4-5.0); Sodium 142 mmol/L (137-145)
[2023-05-23 05:48] LABS: Iron 24 ug/dL (37-170)
[2023-05-23 05:57] LABS: Percent Iron Saturation 8 % (20-50)
[2023-05-23 06:24] LABS: Ferritin 6.88 ng/mL (11.1-264)
[2023-05-23 07:10] LABS: Hypochromasia 1+ (NORMAL); Ovalocytes 1+ (NORMAL); Platelet Estimate Adequate (Adequate); Schistocytes None Seen (NORMAL)
[2023-05-23] MEDS: calcium polycarbophiL 625 MG TABLET 1350 MG PO (09:17)
[2023-05-23] MEDS: ARTIFICIAL TEARS OPHTH SOLN 15 ML BOTTLE 1 DROP EACH EYE ×2 (09:17→17:23)
[2023-05-23] MEDS: ATORVASTATIN 20 MG TABLET PO (09:17)
[2023-05-23] MEDS: DOCUSATE SODIUM LIQ 100 MG/10 ML UDC 250 MG PO (09:20)
[2023-05-23] MEDS: FAMOTIDINE 20 MG TABLET PO (09:20)
[2023-05-23] MEDS: CHOLECALCIFEROL 1,000 UNITS TABLET 2000 UNITS PO (09:20)
[2023-05-23] MEDS: SERTRALINE HCL 25 MG TABLET PO (09:21)
[2023-05-23] MEDS: OPTI-GEN TAB 1 TABLET PO (09:21)
[2023-05-23] MEDS: hydroCHLOROthiazide 25 MG TABLET PO (09:21)
[2023-05-23] MEDS: MULTIVITAMINS /C LUTEIN (CENTRUM SILVER) TABLET *BKC 1 TAB PO (09:21)
[2023-05-23] MEDS: LOSARTAN POTASSIUM 100 MG TABLET PO (09:21)
[2023-05-23] MEDS: oxyBUTYnin CHLORIDE XL 5 MG TAB.ER.24 10 MG PO (09:21)
[2023-05-23] MEDS: POTASSIUM CHLORIDE 20 MEQ ER TABLET PO ×2 (09:21→17:24)
[2023-05-23] MEDS: levETIRAcetam 500 MG TABLET PO (09:21)
[2023-05-23] MEDS: PERFLUTREN LIPID MICROSPHERES 1.5 ML VIAL DILUTED TO 10 ML TOTAL VOLUME IV PUSH (11:00)
--- NOTE | 2023-05-23 12:24 | IVDEFINITY ---
Prior to administration of IV Definity the patient was educated on the risks and benefits of the imaging enhancing agent including potential adverse side effects. The patient verbalized understanding. Allergies were verified. No exclusion criteria were identified and at least one of the following inclusion criteria were met: 1) physician request, 2) patient technically difficult to image (per the [place] [employer]chocardi[employer] guidelines of two or more segments not discernable within the apical view), or 3) questionable left ventricular function. ?
--- NOTE | 2023-05-23 13:56 | PC.NURSE ---
This patient, Nelly Mcgrath, was transferred to [3rd Med Surg ] on 05/23/23 at 1348. Personal belongings sent with patient. Report given to [CEDRIC Doyle ]. Appropriate documentation sent with patient. Patient alert and oriented x3.
--- NOTE | 2023-05-23 14:02 | PC.NURSE ---
Addendum entered by Yanira Lyle RN 05/23/23 14:03: Report from [facility] in IMU Original Note: This patient, Nelly Mcgrath, was received from [imu] on 05/23/23 at 1355. Patient/family oriented to unit policies and routines
--- NOTE | 2023-05-23 14:44 | PM.IMPN ---
Progress Note: A&P Assessment and Plan (1) AMS (altered mental status): Qualifiers: Altered mental status type: disorientation Qualified Code(s): R41.0 - Disorientation, unspecified Code(s): R41.82 - Altered mental status, unspecified Status: Acute Assessment and Plan: Head CT: Chronic encephalomalacia in left frontal lobe. Moderate nonspecific cerebral white matter disease, which likely represents chronic small vessel ischemic disease. Head CTA: Chronic encephalomalacia in left frontal lobe. Moderate nonspecific cerebral white matter disease, which likely represents chronic small vessel ischemic disease. No aneurysm or significant intracranial arterial stenosis. 0% stenosis of the proximal right internal carotid artery relative to normal distal artery lumen diameter (NASCET criteria). 10% stenosis of the proximal left internal carotid artery relative to normal distal artery lumen diameter. CXR: Mild atelectasis in the lower lung zones. EKG SINUS BRADYCARDIA WITH FIRST DEGREE AV BLOCK BORDERLINE R WAVE PROGRESSION, ANTERIOR LEADS BASELINE ARTIFACT- I, II, AVR, V4-V5 BORDERLINE ECG NO PREVIOUS ECG AVAILABLE FOR COMPARISON Initial Labs: hgb 10.1, otherwise unremarkable UA: specific gravity 1.040, nitrate positive, 1+ leuks, 11-20 WBC, 4+ bacteria. UC pending. check TSH with morning labs consider add bedside swallow if confusion persists despite atb treatment. (2) Anemia: Qualifiers: Anemia type: unspecified type Qualified Code(s): D64.9 - Anemia, unspecified Code(s): D64.9 - Anemia, unspecified Status: Acute Assessment and Plan: Hgb 9.5 down from 10.2 on admission anemia w/u: iron low, ferritin low, TIBC WNL; start PO iron supplementation does have history of bleeding hemorrhoids, denied any reoccurrence. Stool occult ordered. (3) UTI (urinary tract infection): Qualifiers: Hematuria presence: without hematuria Urinary tract infection type: acute cystitis Qualified Code(s): N30.00 - Acute cystitis without hematuria Code(s): N39.0 - Urinary tract infection, site not specified Status: Acute Assessment and Plan: UA: specific gravity 1.040, nitrate positive, 1+ leuks, 11-20 WBC, 4+ bacteria. UC pending. ceftriaxone currently Plan Home Meds/Chronic Conditions - continue Keppra for seizure prevention post-resection of meningioma - HTN: continue losartan/HCTZ. Bradycardia resolved, will restart Metoprolol - all other home meds reviewed and resumed as appropriate. Subjective Date/time seen: 05/23/23 14:44 Interval history: Patient is 83 y/o F with PMH of Afib, GERD, HLD, and meningioma. Patient admitted from the emergency department with altered mental status. at bedside this morning and reports that although her cognition is improved and she is answering my questions, she is going off on tangents and not directly answering questions. This is not her baseline. Denies any focal numbness or tingling. and patient are not aware of any changes in her medication list or dosages. No previous history of CVA, does have history of meningioma which she follows up for twice a year for routine monitoring. She was found on admission to have a UTI, started on Rocephin. Could be causing her AMS. Admitted for TIA work up. CT negative for acute changes. MRI negative. Neuro is not here for the rest of the week. ECHO was unchanged from earlier this year. Will continue to monitor, plan for d/c tomorrow if improving and can follow up outpatient for neuro. Review of Systems Review of Systems: All systems reviewed & are unremarkable except as noted in HPI and below Exam Narrative: General: comfortable and no acute distress Eyes: EOMs intact, PERRLA Resp: Effort & Inspection: normal respiratory effort Auscultation: clear to auscultation bilaterally Cardio: RRR GI: Soft to palpation, normal bowel sounds Skin:normal
--- NOTE | 2023-05-23 14:45 | ECHO_ITS ---
Patient Info Name: Nelly Mcgrath Age: 83 years : 1940 Gender: Female Ht: 63 in Wt: 215 lbs BSA: 2.13 m2 HR: 65 bpm BP: 145 / 46 mmHg Heart Rhythm: Sinus Rhythm Technical Quality: Fair Exam Date: 05/23/2023 10:15 AM Exam Location: Echo Lab Patient Status: Outpatient Admit Date: 05/22/2023 Staff Ordering Physician: Mariluz Dillon APRN [facility] Lab Technician: Radha Yost RDCS Attending Provider: Alfredo Gregorio MD Referring Physician: Santana ORDONEZ; Exam Type: CA echo dop bubble study w con Study Info Indications - TIA/CVA W/U Complete two-dimentional, color flow and Doppler transthoracic echocardiogram is performed with agitated saline and with contrast to opacify the left ventricle and to improve the delineation of the left ventricle endocardial borders. Contrast/Agitated Saline Contrast/Ag. Saline: Definity Amount: 2.00 ml Administered By: Radha Yost RDCS Existing IV Access: Yes IV Access Condition: patent with no signs of infiltration Contrast/Ag. Saline: Agitated Saline Amount: 20.00 ml Existing IV Access: Yes IV Access Condition: patent with no signs of infiltration Summary 1. Left ventricular chamber dimension is normal. 2. Left ventricular systolic function is hyperdynamic, estimated at >70%. 3. There is mildly increased left ventricular wall thickness. 4. The left ventricular diastolic function is grade I diastolic dysfunction. 5. Left atrial chamber dimension is mildly enlarged. 6. Intact interatrial septum visualized by color flow and agitated saline imaging. 7. There is mild aortic valve calcification. 8. The mitral valve annulus is moderately calcified. 9. There is mild mitral valve regurgitation. 10. There is mild tricuspid valve regurgitation. 11. Severe pulmonary hypertension, estimated pulmonary arterial systolic pressure is 60 mmHg. 12. There is mild pulmonic regurgitation. Left Ventricle Left ventricular chamber dimension is normal. Left ventricular systolic function is hyperdynamic, estimated at >70%. There is mildly increased left ventricular wall thickness. The left ventricular diastolic function is grade I diastolic dysfunction. Right Ventricle Right ventricular chamber dimension is normal. Right ventricular systolic function is normal. Left Atria Left atrial chamber dimension is mildly enlarged. Right Atria Right atrial chamber dimension is normal. Atrial Septum Intact interatrial septum visualized by color flow and agitated saline imaging. Aortic Valve The aortic valve is trileaflet. There is no aortic valve stenosis. There is trace aortic valve regurgitation. There is mild aortic valve calcification. Pulmonic Valve The pulmonic valve is normal. There is no pulmonic valve stenosis. There is mild pulmonic regurgitation. Mitral Valve There is no mitral valve stenosis. There is mild mitral valve regurgitation. The mitral valve annulus is moderately calcified. Tricuspid Valve The tricuspid valve leaflets are normal. There is no significant tricuspid valve stenosis. There is mild tricuspid valve regurgitation. Severe pulmonary hypertension, estimated pulmonary arterial systolic pressure is 60 mmHg. Pericardium/Pleural The pericardium appears normal. There is no pericardial effusion. Inferior Vena Cava Normal inferior vena cava with >50% collapse upon inspiration consistent with normal right atrial pressure, 10 mmHg. Aorta The aortic root size at the sinus of Valsalva is normal.
[2023-05-23] MEDS: RIVAROXABAN 20 MG TABLET PO (17:24)
[2023-05-24] VITALS: PULSE 69
[2023-05-24 00:12] VITALS: BP 140/67; PULSE 86; RESP 20; TEMP 36.7; O2SAT 92
[2023-05-24 04:00] VITALS: PULSE 62
[2023-05-24 05:53] VITALS: BP 155/52; PULSE 82; RESP 20; TEMP 36.9; O2SAT 96
[2023-05-24 06:07] LABS: Hematocrit 32.6 % (37.0-47.0); Hemoglobin 9.4 g/dL (12.0-15.0); Mean Corpuscular HGB Conc 28.8 g/dl (32-36); Mean Corpuscular Hemoglobin 23.2 pg (26-34); Mean Corpuscular Volume 80.5 fl (80-100); Mean Platelet Volume 11.1 fl (7.4-10.4); Platelet Count Result 177 k/mm3 (150-375); Red Blood Count 4.05 M/mm3 (4.2-5.4); Red Cell Distribution Width 19.7 % (11.5-14.5); White Blood Count 6.9 K/mm3 (4.5-10.0)
[2023-05-24 06:19] LABS: Anion Gap 6 mmol/L (8-16); Blood Urea Nitrogen 16 mg/dL (7-17); Calcium 9.2 mg/dL (8.4-10.2); Carbon Dioxide 27 mmol/L (22-30); Chloride 106 mmol/L (98-107); Estimated CRCL calculation 36 ml/min; Estimated Glomerular Filt Rate 47; Glucose 88 mg/dL (65-110); Potassium 3.8 mmol/L (3.4-5.0); Sodium 139 mmol/L (137-145)
[2023-05-24 08:00] VITALS: PULSE 82
[2023-05-24] MEDS: ARTIFICIAL TEARS OPHTH SOLN 15 ML BOTTLE 1 DROP EACH EYE (08:08)
[2023-05-24] MEDS: calcium polycarbophiL 625 MG TABLET 1350 MG PO (08:09)
[2023-05-24 08:12] VITALS: PULSE 73
[2023-05-24] MEDS: METOPROLOL SUCCINATE EXT REL 25 MG TABCR PO (08:12)
[2023-05-24] MEDS: FAMOTIDINE 20 MG TABLET PO (08:13)
[2023-05-24] MEDS: oxyBUTYnin CHLORIDE XL 5 MG TAB.ER.24 10 MG PO (08:13)
[2023-05-24] MEDS: MULTIVITAMINS /C LUTEIN (CENTRUM SILVER) TABLET *BKC 1 TAB PO (08:13)
[2023-05-24] MEDS: SERTRALINE HCL 25 MG TABLET PO (08:14)
[2023-05-24] MEDS: POTASSIUM CHLORIDE 20 MEQ ER TABLET PO (08:14)
[2023-05-24] MEDS: CHOLECALCIFEROL 1,000 UNITS TABLET 2000 UNITS PO (08:14)
[2023-05-24] MEDS: LOSARTAN POTASSIUM 100 MG TABLET PO (08:15)
[2023-05-24] MEDS: FERROUS GLUCONATE 324 MG TABLET PO (08:15)
[2023-05-24] MEDS: hydroCHLOROthiazide 25 MG TABLET PO (08:15)
[2023-05-24] MEDS: OPTI-GEN TAB 1 TABLET PO (08:16)
[2023-05-24] MEDS: ATORVASTATIN 20 MG TABLET PO (08:16)
[2023-05-24] MEDS: levETIRAcetam 500 MG TABLET PO (08:16)
[2023-05-24] MEDS: AMOXICILLIN/CLAVULANATE K 500-125 MG TAB 1 TABLET PO (08:55)
--- NOTE | 2023-05-24 10:50 | PM.DS ---
DS: Admitting Diagnosis Discharge Date 05/24/23 Admitting Diagnosis altered mental status DS: Discharge Diagnosis Discharge Diagnosis (1) AMS (altered mental status): Qualifiers: Altered mental status type: disorientation Qualified Code(s): R41.0 - Disorientation, unspecified Code(s): R41.82 - Altered mental status, unspecified Status: Resolved Assessment and Plan: Head CT: Chronic encephalomalacia in left frontal lobe. Moderate nonspecific cerebral white matter disease, which likely represents chronic small vessel ischemic disease. Head CTA: Chronic encephalomalacia in left frontal lobe. Moderate nonspecific cerebral white matter disease, which likely represents chronic small vessel ischemic disease. No aneurysm or significant intracranial arterial stenosis. 0% stenosis of the proximal right internal carotid artery relative to normal distal artery lumen diameter (NASCET criteria). 10% stenosis of the proximal left internal carotid artery relative to normal distal artery lumen diameter. CXR: Mild atelectasis in the lower lung zones. EKG SINUS BRADYCARDIA WITH FIRST DEGREE AV BLOCK BORDERLINE R WAVE PROGRESSION, ANTERIOR LEADS BASELINE ARTIFACT- I, II, AVR, V4-V5 BORDERLINE ECG NO PREVIOUS ECG AVAILABLE FOR COMPARISON UA: specific gravity 1.040, nitrate positive, 1+ leuks, 11-20 WBC, 4+ bacteria. UC positive for E.Coli Rocephin changed to PO Augmentin per sensitivity for total 7 day course TSH WNL (2) Anemia: Qualifiers: Anemia type: unspecified type Qualified Code(s): D64.9 - Anemia, unspecified Code(s): D64.9 - Anemia, unspecified Status: Acute Assessment and Plan: Hgb 9.5 down from 10.2 on admission anemia w/u: iron low, ferritin low, TIBC WNL; start PO iron supplementation does have history of bleeding hemorrhoids, denied any reoccurrence. (3) UTI (urinary tract infection): Qualifiers: Hematuria presence: without hematuria Urinary tract infection type: acute cystitis Qualified Code(s): N30.00 - Acute cystitis without hematuria Code(s): N39.0 - Urinary tract infection, site not specified Status: Acute Assessment and Plan: UA: specific gravity 1.040, nitrate positive, 1+ leuks, 11-20 WBC, 4+ bacteria. UC positive for E.Coli Rocephin changed to PO Augmentin per sensitivity for total 7 day course Plan Home Meds/Chronic Conditions - continue Keppra for seizure prevention post-resection of meningioma - HTN: continue losartan/HCTZ. Bradycardia resolved, will restart Metoprolol - all other home meds reviewed and resumed as appropriate. DS: Summary Hospital Course Hospital Course: Patient is 83 y/o F with PMH of Afib, GERD, HLD, and meningioma. Patient admitted from the emergency department with altered mental status. at bedside this morning and reports that although her cognition is improved and she is answering my questions, she is going off on tangents and not directly answering questions. This is not her baseline. Denies any focal numbness or tingling. and patient are not aware of any changes in her medication list or dosages. No previous history of CVA, does have history of meningioma which she follows up for twice a year for routine monitoring. Admitted for TIA work up. CT negative for acute changes. MRI negative. Neuro is not here for the rest of the week. ECHO was unchanged from earlier this year. She was found on admission to have a UTI, started on Rocephin. AMS likely related to infection presentation as she has improved and returned to baseline this morning. Will d/c Rocephin and send home with Augmentin for total of 7 days. Follow up with PCP for repeat urine in 1 week and possible neurology referral if AMS returns. She is stable for d/c home today as neurology will not be available here until next week and her condition has improved with antibiotic treatment. Status at Discharge Function
== END 2023-05-24 10:45 | disposition home or self-care (01) ==
LOC: ANHED 12:17 → ANHIMU 19:36 → ANH3MEDSUR 05-24 09:59 → ANHIMU 05-25 10:18
PROVIDERS: Nurse Practitioner; Student in an Organized Health Care Education/Training Program; Admitting Provider Internal Medicine; Emergency Provider Emergency Medicine; PCP Emergency Medicine; Visit Provider Internal Medicine
DX: R41.0 Disorientation, unspecified (principal); D64.9 Anemia, unspecified; N30.00 Acute cystitis without hematuria; B96.20 Unspecified Escherichia coli [E. coli] as the cause of diseases classified elsewhere; G93.89 Other specified disorders of brain; R90.82 White matter disease, unspecified; R47.9 Unspecified speech disturbances; R00.1 Bradycardia, unspecified; I44.0 Atrioventricular block, first degree; I08.3 Combined rheumatic disorders of mitral, aortic and tricuspid valves; M54.9 Dorsalgia, unspecified; K59.00 Constipation, unspecified; I82.531 Chronic embolism and thrombosis of right popliteal vein; F32.A Depression, unspecified; R91.8 Other nonspecific abnormal finding of lung field; Z20.822 Contact with and (suspected) exposure to COVID-19; K21.9 Gastro-esophageal reflux disease without esophagitis; I11.9 Hypertensive heart disease without heart failure; N39.46 Mixed incontinence; G47.33 Obstructive sleep apnea (adult) (pediatric); Z99.89 Dependence on other enabling machines and devices; I48.0 Paroxysmal atrial fibrillation; E55.9 Vitamin D deficiency, unspecified; Z79.01 Long term (current) use of anticoagulants; Z79.899 Other long term (current) drug therapy
CPT/HCPCS: 36415; 70450; 70496; 70498; 70553; 71045; 80048; 80053; 81001; 82728; 82948; 83540; 83550; 84443; 84484; 85025; 85027; 85610; 85730; 87077; 87086; 87186; 87637; 93005; 96365; 96375; 99285; A9270; A9577; C8929; G0378; J0696; J7120; Q9957; Q9967

== ENCOUNTER 2023-05-26 10:52 | Observation (INO) | payer MEDICARE, SELFPAY ==
[2023-05-26] VITALS (7 sets, daily range): BP systolic 140–169; BP diastolic 48–62; PULSE 50–71; RESP 13–20; TEMP 36.6–37.1; O2SAT 94–100; BMI 39.2
--- NOTE | ~2023-05-26 | MR_ITS ---
EXAMINATION: MR brain/brain stem wo/w con DATE: 05/27/2023 08:06 INDICATION: TIA TECHNIQUE: Magnetic resonance imaging (MRI) of the brain and brainstem was performed without and with 19 mL MultiHance intravenous contrast. Sequences included sagittal and axial T1-weighted SE, axial d iffusion-weighted FS EPI ASSET, axial T2*-weighted GRE, axial T2-weighted FLAIR Propeller, and axial T2-weighted Propeller. Postcontrast axial and coronal T1-weighted SE was obtained. Apparent diffusion coefficient (ADC) maps were created. COMPARISON: CT brain 05/26/2023; MRI brain 05/22/2023. FINDINGS: No abnormal restricted diffusion to suggest acute ischemic infarct. No MRI evidence of hemorrhage or extra-axial collection. No suspicious foci of susceptibility to suggest prior intraparenchymal hemorr jona. Moderate patchy white matter hyperintensity, likely representing moderate small vessel ischemic disease. Mild generalized parenchymal volume loss. No abnormal enhancing lesion. Left temporal focus of susceptibility artifact, likely calcification. Left frontal lobe encephalomalacia with hemosideri n deposition. Ex vacuo dilatation of the left frontal horn. Left frontal craniotomy defect. The basil ar cisterns are patent. Flow voids are preserved. Ethmoid mucosal thickening. Bilateral lens replacem ents. Globes and orbital contents are otherwise within normal limits. IMPRESSION: No acute intracranial process. Reviewed, dictated and finalized at location K. RIFUGAL STATION OPERATOR
--- NOTE | ~2023-05-26 | XR_ITS ---
EXAMINATION: XR chest 2V Exam Date/Time: 05/26/2023 13:45 DIRECTOR OF RESPIRATORY THERAPY HISTORY: stroke symptoms, not making sense per family Comparison: 05/22/2023. RESULT: Lines, tubes, and devices: None. Lungs and pleura: Minimal streaky bibasilar atelectasis/scar. Cardiomediastinal silhouette: Stable. Right hemidiaphragm elevation. Other: No acute osseous or upper abdominal finding. IMPRESSION: No acute cardiopulmonary process. Reviewed, dictated and finalized at location K. CTOR OF RESPIRATORY THERAPY
--- NOTE | ~2023-05-26 | CT_ITS ---
EXAMINATION: CT brain wo con INDICATION: Slurred speech COMPARISON: 05/22/2023 TECHNIQUE: Standard unenhanced head CT. The dose-length product (DLP) was 605.33 mGy-cm. The mA was a djusted according to patient size. Iterative reconstruction technique was employed. FINDINGS: No acute intraparenchymal hemorrhage. No evidence of mass lesion. No evidence of acute infa rction. Encephalomalacia is again noted in the left frontal lobe without significant change. There is mild ex vacuo enlargement in the anterior horn of the left lateral ventricle. There is mild perivent ricular and subcortical hypodensity probably related to small vessel ischemic disease. There is mild prominence of the sulci and ventricles related to cerebral atrophy. Intracranial calcified cerebral a therosclerosis is noted. No extra-axial collections. No mass effect or midline shift. Changes in the globes are likely from ocular lens surgery. There is mild mucosal thickening of the paranasal sinuses . There is a craniotomy defect of the left frontal lobe. IMPRESSION: 1. Chronic encephalomalacia in the left frontal lobe without acute intracranial abnormality. 2. Age related findings. Reviewed, dictated and finalized at location A. ODS SPECIALIST
--- NOTE | 2023-05-26 13:20 | ED.NEUROSD ---
HPI - Neuro Symptoms/Deficit General Chief Complaint: Neuro Symptoms/Deficit Stated Complaint: slurreed speech episodes Time Seen by Provider: 05/26/23 12:52 History of Present Illness HPI Narrative: patient is an 83-year-old female who presents ER with episodes of slurred speech/expressive aphasia. Was having similar symptoms last week and was admitted for observation with CTA and MRI. She was not able to see Neurology. She then went home. Over last 2 days she has had multiple episodes that only occur for 30 seconds or less. No lateralizing weakness or numbness. it was thought she may have UTI so she has been on antibiotics but has no urinary frequency urgency or dysuria. Related Data Home Medications Medication Instructions Recorded Confirmed calcium carbonate 400 mg calcium 400 mg PO BID PRN Acid Reflux 08/30/22 05/22/23 (1,000 mg) chewable tablet docusate sodium 250 mg capsule 250 mg PO DAILY 08/30/22 05/22/23 (Stool Softener) peg 400-propylene glycol 0.4 %-0.3 1 drp ophthalmic (eye) BID 08/30/22 05/22/23 % eye gel drops (Dry Eye Relief (propylene glycol-peg 400)) loratadine 10 mg tablet 10 mg PO DAILY PRN Allergy Symptoms 05/18/23 05/22/23 atorvastatin 20 mg tablet 20 mg DAILY 05/22/23 05/22/23 cholecalciferol (vitamin D3) 50 50 mcg PO DAILY 05/22/23 05/22/23 mcg (2,000 unit) capsule (Vitamin D3) famotidine 20 mg tablet 20 mg PO DAILY 05/22/23 05/22/23 fiber 2 tablet PO DAILY 05/22/23 05/22/23 levetiracetam 500 mg tablet 500 mg PO DAILY 05/22/23 05/22/23 losartan 100 1 tablet PO DAILY 05/22/23 05/22/23 mg-hydrochlorothiazide 25 mg tablet metoprolol succinate 25 mg 25 mg PO DAILY 05/22/23 05/22/23 tablet,extended release 24 hr multivit with minerals-iron 18 1 tablet PO DAILY 05/22/23 05/22/23 mg-folic ac 400 mcg-vit K 25 mcg tablet (Adults Multivitamin) oxybutynin chloride 10 mg 10 mg PO DAILY 05/22/23 05/22/23 tablet,extended release 24 hr potassium chloride 10 mEq 20 meq PO BID 05/22/23 05/22/23 tablet,extended release rivaroxaban 20 mg tablet (Xarelto) 20 mg PO QPM 05/22/23 05/22/23 sertraline 25 mg tablet 25 mg PO DAILY 05/22/23 05/22/23 vit C 250 mg-vit E 90 mg-zinc 40 1 cap PO DAILY 05/22/23 05/22/23 mg-copper 1 [id number] capsule (PreserVision AREDS-2) Allergies Allergy/AdvReac Type Severity Reaction Status Date / Time No Known Allergies Allergy Verified 05/26/23 12:36 Review of Systems Review of Systems: All systems reviewed & are unremarkable except as noted in HPI and below Constitutional: Constitutional: Denies chills, Denies fatigue and Denies fever(s) ENT: Reports system reviewed and no additional complaints, except as documented Cardiovascular: Cardiovascular: Reports no additional cardiovascular complaints Respiratory: Respiratory: Reports no additional respiratory complaints Gastrointestinal: Gastrointestinal: Reports no additional gastrointestinal complaints Genitourinary: Genitourinary: Reports no additional female genitourinary complaints Neurologic: Denies focal weakness and Denies numbness Comments: Expressive aphasia [facility] Past Medical History Medical History Chronic back pain Chronic constipation Chronic deep vein thrombosis (DVT) of popliteal vein of right lower extremity Depression Diastolic dysfunction GERD (gastroesophageal reflux disease) Grade II internal hemorrhoids HLD (hyperlipidemia) Hypertension Insomnia Meningioma Mixed stress and urge urinary incontinence Obstructive sleep apnea on CPAP Osteopenia of multiple sites PAF (paroxysmal atrial fibrillation) Vitamin D deficiency disease Surgical History Surgical History H/O excision of mass H/O hemorrhoidectomy HEMORRHOID BANDING 04/18/21 History of appendectomy 1942 History of cataract surgery History of cholecystectomy History of cranial valentina
[2023-05-26 13:34] LABS: Basophils Absolute Auto 0.1 K/mm3 (0.0-0.1); Basophils Percent Auto 0.7 % (0.2-1.2); Eosinophils Absolute Auto 0.3 K/mm3 (0-0.3); Eosinophils Percent Auto 4.5 % (0-4.4); Hematocrit 34.7 % (37.0-47.0); Hemoglobin 9.9 g/dL (12.0-15.0); Immature Granulocyte Absolute 0.02 K/mm3 (0.00-0.031); Immature Granulocyte Percent A 0.3 % (0-0.5); Lymphocytes Absolute Auto 1.75 K/mm3 (0.9-3.2); Lymphocytes Percent Auto 24.1 % (18.3-44.2); Mean Corpuscular HGB Conc 28.5 g/dl (32-36); Mean Corpuscular Hemoglobin 23.5 pg (26-34); Mean Corpuscular Volume 82.2 fl (80-100); Mean Platelet Volume 10.8 fl (7.4-10.4); Monocytes Absolute Auto 0.9 K/mm3 (0.1-0.6); Monocytes Percent Auto 11.8 % (2.6-8.5); Neutrophils Absolute Auto 4.3 K/mm3 (1.3-6.7); Neutrophils Percent Auto 58.6 % (45.5-73.1); Platelet Count Result 180 k/mm3 (150-375); Red Blood Count 4.22 M/mm3 (4.2-5.4); Red Cell Distribution Width 19.9 % (11.5-14.5); White Blood Count 7.3 K/mm3 (4.5-10.0)
[2023-05-26 13:49] LABS: Alanine Aminotransferase 15 U/L (6-35); Albumin Level 3.7 g/dL (3.5-5.1); Alkaline Phosphatase 98 U/L (38-126); Anion Gap 9 mmol/L (8-16); Anisocytosis 1+ (NORMAL); Aspartate Amino Transferase 23 U/L (14-36); Bilirubin,Total 0.4 mg/dL (0.2-1.3); Blood Urea Nitrogen 23 mg/dL (7-17); Carbon Dioxide 26 mmol/L (22-30); Chloride 108 mmol/L (98-107); Estimated CRCL calculation 29 ml/min; Estimated Glomerular Filt Rate 36; Glucose 103 mg/dL (65-110); Hypochromasia 1+ (NORMAL); Ovalocytes 1+ (NORMAL); Platelet Estimate Adequate (Adequate); Potassium 4.1 mmol/L (3.4-5.0); Schistocytes None Seen (NORMAL); Sodium 143 mmol/L (137-145)
[2023-05-26 14:22] LABS: INR 1.7; Prothrombin Time 20.7 Seconds (11.1-14.7)
[2023-05-26 14:23] LABS: Partial Thromboplastin Time 31.2 SECONDS (22.3-36.8)
[2023-05-26 14:43] LABS: Appearance Urine Clear (Clear); Bilirubin Urine Negative (Negative); Blood Urine Negative (Negative); Color Urine Yellow (Yellow); Glucose Urine UA Negative (Negative); Ketones Urine Trace mg/dL (Negative); Leukocyte Esterase Ur Negative LEU/UL (Negative); Nitrate Urine Negative (Negative); Protein Urine Negative (Negative); Specific Grav Ur 1.017 (1.001-1.035); Urobilinogen Urine 0.2 mg/dL (<2.0); pH Urine 5.5 (5.0-9.0)
[2023-05-26 14:51] LABS: Add Urine Microscopic? NO
[2023-05-26] MEDS: SODIUM CHLORIDE 0.9% IV 1,000 ML 999 ML IV CONT (14:55)
--- NOTE | 2023-05-26 17:48 | PC.NURSE ---
This patient, Nelly Mcgrath, was admitted to Medical Room 251-. Patient/family oriented to hospital policies and general routines including ID bracelet, bed and alarms, visiting hours, pain management, procedures, bathroom and other care routines, personal items, smoking policy, room service/diet, and visiting hours. Information on how to activate the Rapid Response Team has been discussed. Patient/Family are encouraged to report perceived risks to care and to ask questions if they do not understand what they are told or what they should do.
[2023-05-26] MEDS: levETIRAcetam 500 MG TABLET PO (21:00)
--- NOTE | 2023-05-26 22:06 | PM.IMHP ---
H&P: HPI History of Present Illness Date/Time: 05/26/23 21:00 Chief Complaint: Speech difficulties. Narrative: This is a pleasant 83-year-old female with history of paroxysmal atrial fibrillation on anticoagulation, hypertension, hyperlipidemia, obstructive sleep apnea on CPAP, meningioma status post resection, and deep venous thrombosis who presented to the emergency department via private vehicle from home for evaluation of speech difficulties. The patient provides the following history. She was admitted to the hospital earlier this week with similar complaints. She reports having several intermittent episodes over the last week or so where she has difficulties coming up with the words that she is wanting to say, sometime she stops in the middle of a sentence and feels as though she has completely lost her train of thought, and reports that at time she sees is speaking ?out of her head. Workup at that time included a brain CT negative for acute findings, head and neck CTA without significant large vessel occlusion or stenosis, and a brain MRI without acute intracranial process. Atorvastatin and rivaroxaban were continued and she was discharged home on Augmentin for urinary tract infection and they presumed that perhaps that is what was causing her symptoms. brought her back in today as she has had multiple recurrent episodes where she is unable to speak or with slurred speech, resolving within approximately 30 seconds or less. The patient is alert bring these episodes but feels as though she cannot talk. She denies syncope and near syncope, vertigo, visual changes, facial droop, difficulty swallowing, focal weakness, paresthesias, and shortness of breath. No seizure activity was noted. She has no history of seizures to her knowledge but she is on levetiracetam following resection of a meningioma in 2018. Given her recurrent symptoms, she is being admitted for neurology consultation. At the time my evaluation she is at her baseline and has no complaints. Review of Systems Review of Systems: Twelve systems were reviewed. She denies fever, chills, and sweats. No headache or neck ache. No cold or flu symptoms. She denies chest pain and pleuritic pain. No palpitations or sensations of racing heart. Appetite has been okay. She denies nausea and vomiting. No diarrhea. She is on rivaroxaban for stroke prophylaxis given atrial fibrillation and she states compliance with that. Except as documented, all other systems were reviewed and are negative. [facility] Past Medical History Medical History Chronic anticoagulation Chronic back pain Chronic constipation Chronic deep vein thrombosis (DVT) of popliteal vein of right lower extremity Chronic kidney disease, stage 3 Depression Diastolic dysfunction Gastroesophageal reflux disease Grade II internal hemorrhoids Hyperlipidemia Hypertension Insomnia Meningioma Status post resection in 2018. Mixed stress and urge urinary incontinence Obstructive sleep apnea on CPAP Osteopenia of multiple sites Paroxysmal atrial fibrillation Vitamin D deficiency disease Surgical History Surgical History History of appendectomy (1942) History of bilateral knee replacement History of cataract surgery History of cholecystectomy History of exam under anesthesia with hemorrhoid banding (04/2021) History of resection of meningioma (04/2018) Family History Family History Father Acute myocardial infarction, Onset Age: 76 Mother Carcinoma of colon, Onset Age: 68 Son No problems noted. Son No problems noted. Son No problems noted. Social History Social History Social History: Surrogate Decision Maker: Hayes Mcgrath, spouse. Code Status:
[2023-05-27] VITALS (9 sets, daily range): BP systolic 135–145; BP diastolic 49–60; PULSE 51–66; RESP 16–18; TEMP 36.3–36.6; O2SAT 93–95
[2023-05-27 05:52] LABS: Anion Gap 5 mmol/L (8-16); Blood Urea Nitrogen 20 mg/dL (7-17); Calcium 9.6 mg/dL (8.4-10.2); Carbon Dioxide 26 mmol/L (22-30); Chloride 112 mmol/L (98-107); Estimated CRCL calculation 40 ml/min; Estimated Glomerular Filt Rate 53; Glucose 86 mg/dL (65-110); Magnesium 1.8 mg/dL (1.6-2.3); Sodium 143 mmol/L (137-145)
[2023-05-27 07:01] LABS: Folic Acid > 20.0 ng/mL (2.76->20)
--- NOTE | 2023-05-27 08:13 | PM.IMPN ---
Progress Note: A&P Assessment and Plan (1) Transient speech disturbance: Code(s): R47.9 - Unspecified speech disturbances Status: Acute (2) Obstructive sleep apnea on CPAP: Code(s): G47.33 - Obstructive sleep apnea (adult) (pediatric) Status: Acute (3) Chronic kidney disease, stage 3: Code(s): N18.30 - Chronic kidney disease, stage 3 unspecified Status: Acute (4) Chronic anemia: Code(s): D64.9 - Anemia, unspecified Status: Acute (5) Slurred speech: Code(s): R47.81 - Slurred speech Status: Acute (6) Paroxysmal atrial fibrillation: Code(s): I48.0 - Paroxysmal atrial fibrillation Status: Acute (7) Hyperlipidemia: Code(s): E78.5 - Hyperlipidemia, unspecified Status: Acute Plan Assessment and plan (1) Transient speech disturbance: ?Code(s): R47.9 - Unspecified speech disturbances ?Status:?Acute ?Assessment and Plan: Etiology is not entirely clear but she has had intermittent, patient states she she seemed loss the memory patient had trouble with talking Differential diagnosis includes recurrent TIA, partial seizure, less likely myasthenia gravis, versus other. Brain MRI report pending neurology consulted for recommendations. (2) Paroxysmal atrial fibrillation: ?Code(s): I48.0 - Paroxysmal atrial fibrillation ?Status:?Acute ?Assessment and Plan: sinus rhythm, Continue metoprolol and rivaroxaban for stroke prophylaxis. (3) Hyperlipidemia: ?Code(s): E78.5 - Hyperlipidemia, unspecified ?Status:?Acute ?Assessment and Plan: Continue atorvastatin; LFTs within normal limits. (4) Chronic anemia: ?Code(s): D64.9 - Anemia, unspecified ?Status:?Acute ?Assessment and Plan: Recent iron studies noted for which she was started on iron supplementation. H&H is stable. Hemoglobin stable (5) Chronic kidney disease, stage 3: ?Code(s): N18.30 - Chronic kidney disease, stage 3 unspecified ?Status:?Acute ?Assessment and Plan: Creatinine is a bit elevated from baseline though she looks euvolemic. Received 1 L normal saline in ED. Repeat renal function in a.m. Bladder scan to rule out urinary retention. Resolved, creatinine 1.0 (6) Obstructive sleep apnea on CPAP: ?Code(s): G47.33 - Obstructive sleep apnea (adult) (pediatric) ?Status:?Acute ?Assessment and Plan: Patient may use CPAP from home. Subjective Date/time seen: 05/27/23 08:13 Interval history: I saw and examined patient today. Patient has no difficulty with talking, patient also denies focal weakness, numbness, vision change Exam Narrative: General: Well-developed female in the semi-Justice position in bed. Weight: 97.4 kg. BMI: 39.3. HEENT: Normocephalic, atraumatic. PERRL, EOMI. Sclera anicteric. Oral mucosa moist. Oropharynx is crowded. Neck: Supple. Supple. No obvious bruits. Respiratory: Lungs are clear to auscultation bilaterally. Cardiovascular: Bradycardic with normal S1-S2. Gastrointestinal: Abdomen is soft, obese, nontender, and nondistended with positive bowel sounds. Skin: Warm and dry. No rash or lesions on limited exam. Extremities: No cyanosis, clubbing, or significant edema. Radial and pedal pulses intact. Neurological: Alert and oriented. Cranial nerves 2-12 are grossly intact. Speech is clear. No facial asymmetry. Normal onqaxy-xe-yxyi and rapid alternating movements. No pronator drift. Equal strength in upper and lower extremities without gross focal deficits. Psychiatric: Pleasant and cooperative with normal mood and affect. Judgment and insight intact. Objective Data Vital Signs Vital Signs: Vital Signs - 24 hr 05/26/23 12:34 05/26/23 15:00 05/26/23 15:27 Temperature 97.9 F Pulse Rate 71 50 L 52 L Respiratory Rate 20 13 16 Blood Pressure 140/53 L 153/50 H 150/57 H Pulse Oximetry 95 97 100 Oxygen Delivery 05/26/23 16:28 05/03
[2023-05-27] MEDS: CHOLECALCIFEROL 1,000 UNITS TABLET 1000 UNITS PO (08:25)
[2023-05-27] MEDS: ATORVASTATIN 20 MG TABLET PO (08:25)
[2023-05-27] MEDS: AMOXICILLIN/CLAVULANATE K 500-125 MG TAB 1 TABLET PO ×2 (08:25→20:16)
[2023-05-27] MEDS: FAMOTIDINE 20 MG TABLET PO (08:26)
[2023-05-27] MEDS: DOCUSATE SODIUM 100 MG CAPSULE 200 MG PO (08:26)
[2023-05-27] MEDS: FERROUS SULFATE 325 MG TABLET DR PO (08:26)
[2023-05-27] MEDS: LORATADINE 10 MG TABLET PO (08:27)
[2023-05-27] MEDS: levETIRAcetam 500 MG TABLET PO ×2 (08:27→20:16)
[2023-05-27] MEDS: hydroCHLOROthiazide 25 MG TABLET PO (08:27)
[2023-05-27] MEDS: LOSARTAN POTASSIUM 100 MG TABLET PO (08:27)
[2023-05-27] MEDS: MULTIVITAMINS /C LUTEIN (CENTRUM SILVER) TABLET *BKC 1 TAB PO (08:28)
[2023-05-27] MEDS: OPTI-GEN TAB 1 TABLET PO (08:28)
[2023-05-27] MEDS: SERTRALINE HCL 25 MG TABLET PO (08:29)
[2023-05-27] MEDS: oxyBUTYnin CHLORIDE XL 5 MG TAB.ER.24 10 MG PO (08:29)
[2023-05-27] MEDS: POTASSIUM CHLORIDE 20 MEQ ER TABLET PO (08:30)
--- NOTE | 2023-05-27 10:17 | WPDNEURCNPN ---
Assessment and Plan Assessment and plan (1) Transient speech disturbance: Code(s): R47.9 - Unspecified speech disturbances Status: Acute (2) Paroxysmal atrial fibrillation: Code(s): I48.0 - Paroxysmal atrial fibrillation Status: Acute (3) Hyperlipidemia: Code(s): E78.5 - Hyperlipidemia, unspecified Status: Acute Plan Nelly Mcgrath is a 83 year old female with a history of atrial fibrillation, HTN, HLD, meningioma s/p resection in 2018, FRANCIS presenting for evaluation of episodic aphasia. CT head showed encephalomalacia of the L frontal region. Episodes are very short -- 5-10 seconds. Considering short focal seizures vs TIA, although with the length of episodes, both seem less likely. Patient's reports that she has missed doses of Xarelto every now and then. These episodes could also be related to chronic L frontal encephalomalacia. - MRI brain is pending - Discussed importance of compliance with anticoagulation Consult date: 05/27/23 Reason for consult: Expressive aphasia HPI: Nelly Mcgrath is a 83 year old female with a history of atrial fibrillation, HTN, HLD, meningioma s/p resection in 2018, FRANCIS presenting for evaluation of episodic aphasia. Patient was recently admitted about a week ago for similar complaints. She had an MRI brain that was normal. She was found to have a UTI, which was thought to be the source of her symptoms. She was treated with full course of antibiotics. Two days prior to this admission, patient started having several 5-10 second episodes of expressive aphasia. She was brought in again yesterday to [place] ED. CT head showed chronic encephalomalacia in the L frontal lobe (presumably from meningioma resection). UA was not suggestive of infection. She was admitted for MRI brain. She had a CTA brain/carotid during the last admission about 5 days ago that showed 10% stenosis of L proximal ICA but no other significant findings. Patient takes Keppra 500mg BID which she has taken since the meningioma was resected. She is on Xarelto 20mg for atrial fibrillation. Patient has not had any episodes since she has been admitted. Per family, she appears to be fully aware during episode and does not appear to be confused or tired afterwards. She has never had any obvious seizures that they have observed, after she was put on Keppra about 5 years ago. Per , patient does miss her Xarelto dose every now and then. Review of Systems Review of Systems: All systems reviewed & are unremarkable except as noted in HPI and below PMFSH Past Medical History Medical History Chronic anticoagulation Chronic back pain Chronic constipation Chronic deep vein thrombosis (DVT) of popliteal vein of right lower extremity Chronic kidney disease, stage 3 Depression Diastolic dysfunction Gastroesophageal reflux disease Grade II internal hemorrhoids Hyperlipidemia Hypertension Insomnia Meningioma Status post resection in 2018. Mixed stress and urge urinary incontinence Obstructive sleep apnea on CPAP Osteopenia of multiple sites Paroxysmal atrial fibrillation Vitamin D deficiency disease Surgical History Surgical History History of appendectomy (1941) History of bilateral knee replacement History of cataract surgery History of cholecystectomy History of exam under anesthesia with hemorrhoid banding (04/2021) History of resection of meningioma (04/2018) Family History Family History Father Acute myocardial infarction, Onset Age: 76 Mother Carcinoma of colon, Onset Age: 68 Son No problems noted. Son No problems noted. Son No problems noted. Social History Social History Social History: Surrogate Decision Maker: Hayes Mcgrath, spouse. Co
[2023-05-27] MEDS: ARTIFICIAL TEARS OPHTH SOLN 15 ML BOTTLE 1 DROP EACH EYE (17:24)
[2023-05-27] MEDS: RIVAROXABAN 20 MG TABLET PO (17:24)
[2023-05-28] VITALS (10 sets, daily range): BP systolic 130–178; BP diastolic 66–73; PULSE 52–76; RESP 16–18; TEMP 36.3–36.9; O2SAT 96–98
--- NOTE | 2023-05-28 08:14 | PM.IMPN ---
Progress Note: A&P Assessment and Plan (1) Transient speech disturbance: Code(s): R47.9 - Unspecified speech disturbances Status: Acute (2) Obstructive sleep apnea on CPAP: Code(s): G47.33 - Obstructive sleep apnea (adult) (pediatric) Status: Acute (3) Chronic kidney disease, stage 3: Code(s): N18.30 - Chronic kidney disease, stage 3 unspecified Status: Acute (4) Chronic anemia: Code(s): D64.9 - Anemia, unspecified Status: Acute (5) Slurred speech: Code(s): R47.81 - Slurred speech Status: Acute (6) Paroxysmal atrial fibrillation: Code(s): I48.0 - Paroxysmal atrial fibrillation Status: Acute (7) Hyperlipidemia: Code(s): E78.5 - Hyperlipidemia, unspecified Status: Acute Plan Assessment and plan (1) Transient speech disturbance: ?Code(s): R47.9 - Unspecified speech disturbances ?Status:?Acute ?Assessment and Plan: Etiology is not entirely clear but she has had intermittent, patient states she she seemed loss the memory patient had trouble with talking Differential diagnosis includes recurrent TIA, partial seizure, less likely myasthenia gravis, versus other. Brain MRI report no acute intracranial process neurology consulted for recommendations. (2) Paroxysmal atrial fibrillation: ?Code(s): I48.0 - Paroxysmal atrial fibrillation ?Status:?Acute ?Assessment and Plan: sinus rhythm, Continue metoprolol and rivaroxaban for stroke prophylaxis. (3) Hyperlipidemia: ?Code(s): E78.5 - Hyperlipidemia, unspecified ?Status:?Acute ?Assessment and Plan: Continue atorvastatin; LFTs within normal limits. (4) Chronic anemia: ?Code(s): D64.9 - Anemia, unspecified ?Status:?Acute ?Assessment and Plan: Recent iron studies noted for which she was started on iron supplementation. H&H is stable. Hemoglobin stable (5) Chronic kidney disease, stage 3: ?Code(s): N18.30 - Chronic kidney disease, stage 3 unspecified ?Status:?Acute ?Assessment and Plan: Creatinine is a bit elevated from baseline though she looks euvolemic. Received 1 L normal saline in ED. Repeat renal function in a.m. Bladder scan to rule out urinary retention. Resolved, creatinine 1.0 (6) Obstructive sleep apnea on CPAP: ?Code(s): G47.33 - Obstructive sleep apnea (adult) (pediatric) ?Status:?Acute ?Assessment and Plan: Patient may use CPAP from home. Patient can be discharged, if it is okay for neurologist Subjective Date/time seen: 05/28/23 08:14 Interval history: I saw and examined patient today. Patient has no difficulty with talking, patient also denies focal weakness, numbness, vision change Exam Narrative: General: Well-developed female in the semi-Justice position in bed. Weight: 97.4 kg. BMI: 39.3. HEENT: Normocephalic, atraumatic. PERRL, EOMI. Sclera anicteric. Oral mucosa moist. Oropharynx is crowded. Neck: Supple. Supple. No obvious bruits. Respiratory: Lungs are clear to auscultation bilaterally. Cardiovascular: Bradycardic with normal S1-S2. Gastrointestinal: Abdomen is soft, obese, nontender, and nondistended with positive bowel sounds. Skin: Warm and dry. No rash or lesions on limited exam. Extremities: No cyanosis, clubbing, or significant edema. Radial and pedal pulses intact. Neurological: Alert and oriented. Cranial nerves 2-12 are grossly intact. Speech is clear. No facial asymmetry. Normal hquhuv-lv-nsnb and rapid alternating movements. No pronator drift. Equal strength in upper and lower extremities without gross focal deficits. Psychiatric: Pleasant and cooperative with normal mood and affect. Judgment and insight intact. Objective Data Vital Signs Vital Signs: Vital Signs - 24 hr 05/27/23 08:20 05/27/23 08:16 05/27/23 12:00 Temperature Pulse Rate 54 L 57 L Respiratory Rate Blood Pressure Pulse Oximetry O
[2023-05-28] MEDS: AMOXICILLIN/CLAVULANATE K 500-125 MG TAB 1 TABLET PO ×2 (09:08→20:44)
[2023-05-28] MEDS: oxyBUTYnin CHLORIDE XL 5 MG TAB.ER.24 10 MG PO (09:09)
[2023-05-28] MEDS: CHOLECALCIFEROL 1,000 UNITS TABLET 1000 UNITS PO (09:09)
[2023-05-28] MEDS: DOCUSATE SODIUM 100 MG CAPSULE 200 MG PO (09:09)
[2023-05-28] MEDS: LOSARTAN POTASSIUM 100 MG TABLET PO (09:09)
[2023-05-28] MEDS: POTASSIUM CHLORIDE 20 MEQ ER TABLET PO ×2 (09:09→17:49)
[2023-05-28] MEDS: OPTI-GEN TAB 1 TABLET PO (09:09)
[2023-05-28] MEDS: FAMOTIDINE 20 MG TABLET PO (09:09)
[2023-05-28] MEDS: ARTIFICIAL TEARS OPHTH SOLN 15 ML BOTTLE 1 DROP EACH EYE ×2 (09:09→17:49)
[2023-05-28] MEDS: MULTIVITAMINS /C LUTEIN (CENTRUM SILVER) TABLET *BKC 1 TAB PO (09:09)
[2023-05-28] MEDS: ATORVASTATIN 20 MG TABLET PO (09:09)
[2023-05-28] MEDS: FERROUS SULFATE 325 MG TABLET DR PO (09:09)
[2023-05-28] MEDS: levETIRAcetam 500 MG TABLET PO ×2 (09:09→20:44)
[2023-05-28] MEDS: METOPROLOL SUCCINATE EXT REL 12.5 MG TABCR PO (09:13)
[2023-05-28] MEDS: hydroCHLOROthiazide 25 MG TABLET PO (09:14)
[2023-05-28] MEDS: SERTRALINE HCL 25 MG TABLET PO (09:14)
--- NOTE | 2023-05-28 14:22 | PM.DS ---
DS: Admitting Diagnosis Discharge Date 05/28 Admitting Diagnosis (1) Transient speech disturbance: ?Code(s): R47.9 - Unspecified speech disturbances ?Status:?Acute (2) Obstructive sleep apnea on CPAP: ?Code(s): G47.33 - Obstructive sleep apnea (adult) (pediatric) ?Status:?Acute (3) Chronic kidney disease, stage 3: ?Code(s): N18.30 - Chronic kidney disease, stage 3 unspecified ?Status:?Acute (4) Chronic anemia: ?Code(s): D64.9 - Anemia, unspecified ?Status:?Acute (5) Slurred speech: ?Code(s): R47.81 - Slurred speech ?Status:?Acute (6) Paroxysmal atrial fibrillation: ?Code(s): I48.0 - Paroxysmal atrial fibrillation ?Status:?Acute (7) Hyperlipidemia: ?Code(s): E78.5 - Hyperlipidemia, unspecified ?Status:?Acute DS: Discharge Diagnosis Discharge Diagnosis (1) Transient speech disturbance: Code(s): R47.9 - Unspecified speech disturbances Status: Acute (2) Obstructive sleep apnea on CPAP: Code(s): G47.33 - Obstructive sleep apnea (adult) (pediatric) Status: Acute (3) Chronic kidney disease, stage 3: Code(s): N18.30 - Chronic kidney disease, stage 3 unspecified Status: Acute (4) Chronic anemia: Code(s): D64.9 - Anemia, unspecified Status: Acute (5) Slurred speech: Code(s): R47.81 - Slurred speech Status: Acute (6) Paroxysmal atrial fibrillation: Code(s): I48.0 - Paroxysmal atrial fibrillation Status: Acute (7) Hyperlipidemia: Code(s): E78.5 - Hyperlipidemia, unspecified Status: Acute DS: Summary Hospital Course Hospital Course: Per H&P, 83 y/o F presents here with AMS with PMH of Afib, GERD, HLD, and meningioma. Patient presented to the emergency department with altered mental status.? provided majority HPI due to patient's current cognition.? He states that her LNK was 0830.? the began eating breakfast around 930 a.m., during breakfast he noted that she became confused and would repetitively say I don't know . This continued for about 10 minutes, he then called EMS.? After arrival to the emergency department, patient continued to experience same alteration and would repeatedly answer questions with I don't know . Without intervention, patient then began to speak normally and able to complete full sentences for a brief period,? then had brief reoccurrence of repetitive statement and inability to complete sentences.? it resolves but continued to have some intermittent dysarthria and tangential thinking redirection multiple times. Patient unable to provide reliable history or +/- symptoms. ? Did state that she is normally able to urinate without difficulty and currently cannot go.? Denies dysuria or frequency.? Denied any focal numbness or tingling. ? does not report any recent changes or alterations to her normal baseline or complaints that she has voiced.? No previous history of CVA, does have history of meningioma. The following medical issues have been addressed during hospitalization (1) Transient speech disturbance: ?Code(s): R47.9 - Unspecified speech disturbances ?Status:?Acute ?Assessment and Plan: Etiology is not entirely clear but she has had intermittent, patient states she she seemed loss the memory patient had trouble with talking Differential diagnosis includes recurrent TIA, partial seizure, less likely myasthenia gravis, versus other. Brain MRI report no acute intracranial process neurology consulted for recommendations. (2) Paroxysmal atrial fibrillation: ?Code(s): I48.0 - Paroxysmal atrial fibrillation ?Status:?Acute ?Assessment and Plan: sinus rhythm, Continue metoprolol and rivaroxaban for stroke prophylaxis. (3) Hyperlipidemia: ?Code(s): E78.5 - Hyperlipidemia, unspecified ?Status:?Acute ?Assessment and Plan: Continue atorvastatin; LFTs within normal limits. (4) Chronic
[2023-05-28] MEDS: RIVAROXABAN 20 MG TABLET PO (17:50)
[2023-05-29] VITALS (7 sets, daily range): BP systolic 127–134; BP diastolic 50–61; PULSE 53–70; RESP 14–19; TEMP 36.5; O2SAT 92–98
[2023-05-29] MEDS: oxyBUTYnin CHLORIDE XL 5 MG TAB.ER.24 10 MG PO (09:35)
[2023-05-29] MEDS: METOPROLOL SUCCINATE EXT REL 12.5 MG TABCR PO (09:36)
[2023-05-29] MEDS: MULTIVITAMINS /C LUTEIN (CENTRUM SILVER) TABLET *BKC 1 TAB PO (09:36)
[2023-05-29] MEDS: POTASSIUM CHLORIDE 20 MEQ ER TABLET PO (09:36)
[2023-05-29] MEDS: CHOLECALCIFEROL 1,000 UNITS TABLET 1000 UNITS PO (09:36)
[2023-05-29] MEDS: AMOXICILLIN/CLAVULANATE K 500-125 MG TAB 1 TABLET PO (09:36)
[2023-05-29] MEDS: FERROUS SULFATE 325 MG TABLET DR PO (09:36)
[2023-05-29] MEDS: DOCUSATE SODIUM 100 MG CAPSULE 200 MG PO (09:36)
[2023-05-29] MEDS: LOSARTAN POTASSIUM 100 MG TABLET PO (09:36)
[2023-05-29] MEDS: SERTRALINE HCL 25 MG TABLET PO (09:36)
[2023-05-29] MEDS: OPTI-GEN TAB 1 TABLET PO (09:36)
[2023-05-29] MEDS: FAMOTIDINE 20 MG TABLET PO (09:37)
[2023-05-29] MEDS: levETIRAcetam 500 MG TABLET PO (09:37)
[2023-05-29] MEDS: ATORVASTATIN 20 MG TABLET PO (09:37)
[2023-05-29] MEDS: hydroCHLOROthiazide 25 MG TABLET PO (09:37)
[2023-05-29] MEDS: ARTIFICIAL TEARS OPHTH SOLN 15 ML BOTTLE 1 DROP EACH EYE (09:37)
--- NOTE | 2023-05-29 12:42 | PM.DS ---
DS: Admitting Diagnosis Discharge Date 05/29/2023 Admitting Diagnosis Speech difficulties DS: Discharge Diagnosis Discharge Diagnosis (1) Transient speech disturbance: Code(s): R47.9 - Unspecified speech disturbances Status: Acute (2) Obstructive sleep apnea on CPAP: Code(s): G47.33 - Obstructive sleep apnea (adult) (pediatric) Status: Acute (3) Chronic kidney disease, stage 3: Code(s): N18.30 - Chronic kidney disease, stage 3 unspecified Status: Acute (4) Chronic anemia: Code(s): D64.9 - Anemia, unspecified Status: Acute (5) Slurred speech: Code(s): R47.81 - Slurred speech Status: Acute (6) Paroxysmal atrial fibrillation: Code(s): I48.0 - Paroxysmal atrial fibrillation Status: Acute (7) Hyperlipidemia: Code(s): E78.5 - Hyperlipidemia, unspecified Status: Acute Plan Assessment and plan (1) Transient speech disturbance: ?Code(s): R47.9 - Unspecified speech disturbances ?Status:?Acute ?Assessment and Plan: Considering short focal seizures vs TIA. Neurology will follow as outpatient. Continue Keppra for now also pt will have neurology follow up (2) Paroxysmal atrial fibrillation: ?Code(s): I48.0 - Paroxysmal atrial fibrillation ?Status:?Acute ?Assessment and Plan: Continue metoprolol and rivaroxaban for stroke prophylaxis. (3) Hyperlipidemia: ?Code(s): E78.5 - Hyperlipidemia, unspecified ?Status:?Acute ?Assessment and Plan: Continue atorvastatin (4) Chronic anemia: ?Code(s): D64.9 - Anemia, unspecified ?Status:?Acute ?Assessment and Plan: Recent iron studies noted for which she was started on iron supplementation. (5) Chronic kidney disease, stage 3: ?Code(s): N18.30 - Chronic kidney disease, stage 3 unspecified ?Status:?Acute ?Assessment and Plan: Creatinine is a bit elevated from baseline though she looks euvolemic. Received 1 L normal saline in ED. Resolved, creatinine 1.0 (6) Obstructive sleep apnea on CPAP: ?Code(s): G47.33 - Obstructive sleep apnea (adult) (pediatric) ?Status:?Acute ?Assessment and Plan: Patient may use CPAP from home. DS: Summary Hospital Course Hospital Course: 83-year-old female with history of paroxysmal atrial fibrillation on anticoagulation, hypertension, hyperlipidemia, obstructive sleep apnea on CPAP, meningioma status post resection, and deep venous thrombosis who presented to the emergency department via private vehicle from home for evaluation of speech difficulties. The patient provides the following history. She was admitted to the hospital earlier this week with similar complaints. She reports having several intermittent episodes over the last week or so where she has difficulties coming up with the words that she is wanting to say, sometime she stops in the middle of a sentence and feels as though she has completely lost her train of thought, and reports that at time she sees is speaking ?out of her head. Workup at that time included a brain CT negative for acute findings, head and neck CTA without significant large vessel occlusion or stenosis, and a brain MRI without acute intracranial process. Atorvastatin and rivaroxaban were continued and she was discharged home on Augmentin for urinary tract infection and they presumed that perhaps that is what was causing her symptoms. brought her back in today as she has had multiple recurrent episodes where she is unable to speak or with slurred speech, resolving within approximately 30 seconds or less. The patient is alert bring these episodes but feels as though she cannot talk. She denies syncope and near syncope, vertigo, visual changes, facial droop, difficulty swallowing, focal weakness, paresthesias, and shortness of breath. No seizure activity was noted. She has no history of seizures to her knowledge but she is on levetiracetam
== END 2023-05-29 14:26 | disposition home or self-care (01) ==
LOC: ANHED 13:19 → ANH2MED 17:49
PROVIDERS: Physician Assistant; Admitting Provider Internal Medicine; Emergency Provider Emergency Medicine; PCP Emergency Medicine; Visit Provider Family Medicine
DX: R47.81 Slurred speech (principal); G47.33 Obstructive sleep apnea (adult) (pediatric); I11.9 Hypertensive heart disease without heart failure; I48.0 Paroxysmal atrial fibrillation; E78.5 Hyperlipidemia, unspecified; I82.531 Chronic embolism and thrombosis of right popliteal vein; K59.09 Other constipation; K21.9 Gastro-esophageal reflux disease without esophagitis; H04.129 Dry eye syndrome of unspecified lacrimal gland; F32.A Depression, unspecified; G93.89 Other specified disorders of brain; N18.30 Chronic kidney disease, stage 3 unspecified; D64.9 Anemia, unspecified; N39.46 Mixed incontinence; E55.9 Vitamin D deficiency, unspecified; Z99.89 Dependence on other enabling machines and devices; Z86.011 Personal history of benign neoplasm of the brain; Z98.890 Other specified postprocedural states; Z79.01 Long term (current) use of anticoagulants; Z79.899 Other long term (current) drug therapy
CPT/HCPCS: 36415; 70450; 70553; 71046; 80048; 80053; 81003; 82607; 82746; 83735; 85025; 85610; 85730; 96360; 96361; 99285; A9270; A9577; G0378; J7030

== ENCOUNTER 2023-06-06 10:54 | Outpatient (CLI) | payer MEDICARE, SELFPAY ==
[2023-06-06 12:17] LABS: SARS-CoV-2 RNA PCR Positive (Negative)
== END 2023-06-06 10:55 | disposition home or self-care (01) ==
LOC: ANHLAB 10:55
PROVIDERS: PCP Emergency Medicine; Visit Provider Emergency Medicine
DX: U07.1 COVID-19 (principal)
CPT/HCPCS: 87635

== ENCOUNTER 2023-07-12 17:14 | Emergency (ER) | payer MEDICARE, SELFPAY ==
--- NOTE | ~2023-07-12 | XR_ITS ---
EXAMINATION: [id number] DATE: 07/12/2023 17:42 INDICATION: Bruising to the left knee post fall TECHNIQUE: AP and crosstable lateral views of both knees were obtained. COMPARISON: None. FINDINGS: Left total knee arthroplasty with patellar resurfacing which appears well seated in near-anatomic ali gnment. No fracture. Minimal prepatellar stranding which could relate to posttraumatic contusion. No left knee joint effusion. IMPRESSION: 1. Left total knee arthroplasty in near-anatomic alignment. No left knee joint effusion or acute osse ous abnormality. Reviewed, dictated and finalized at location A. D GUARD IMPRESSION: 1. Left total knee arthroplasty in near-anatomic alignment. No left knee joint effusion or acute osseous abnormality.
--- NOTE | ~2023-07-12 | XR_ITS ---
EXAMINATION: [id number] DATE: 07/12/2023 17:42 INDICATION: Left-sided anterior rib pain TECHNIQUE: PA view of the chest and 2 views of the left ribs were obtained. COMPARISON: Chest radiograph dated 05/26/2023 FINDINGS: No rib fractures identified. Mild elevation the right hemidiaphragm with linear discoid atelectasis a t the right lower lung zone. There is mild streaky atelectasis at the left lung base. No pulmonary ed deanna, pleural effusion or pneumothorax. Cholecystectomy clips in right upper quadrant. There are also multiple small metallic coils suggesting prior ventral hernia mesh repair. IMPRESSION: 1. No evident rib fracture. 2. Mild linear and streaky atelectasis in the bilateral lower lung zones. Reviewed, dictated and finalized at location A. [employer] PACKING MACHINE OPERATOR
[2023-07-12 17:27] VITALS: BP 140/86; PULSE 75; RESP 16; TEMP 36.6; O2SAT 96
--- NOTE | 2023-07-12 17:50 | ED.LOWEXIN ---
HPI - Extremity Injury (Lower) General Chief Complaint: Extremity Injury, Lower Stated Complaint: Bruised Knee Time Seen by Provider: 07/12/23 17:28 Source: patient, family () and RN notes reviewed Mode of arrival: ambulatory Limitations: no limitations History of Present Illness HPI Narrative: Patient presents today complaining of left knee pain and bruising as well as left anterior rib pain after a fall at home 2 days ago. Patient states her cane was falling to the ground in she went to catch it, falling herself. Reports pain to the knee is only present when she touches the bruised areas. She has been ambulatory since fall. Pain to the ribs is only present when she takes a deep breath or with touching the area. She is on Xarelto. History of bilateral knee replacements. Denies shortness of breath. No oxls-kfu-tjxkour medication for symptoms prior to arrival. Related Data Home Medications Medication Instructions Recorded Confirmed calcium carbonate 400 mg calcium 400 mg PO BID PRN Acid Reflux 08/30/22 07/12/23 (1,000 mg) chewable tablet docusate sodium 250 mg capsule 250 mg PO DAILY 08/30/22 07/12/23 (Stool Softener) peg 400-propylene glycol 0.4 %-0.3 1 drp ophthalmic (eye) BID 08/30/22 07/12/23 % eye gel drops (Dry Eye Relief (propylene glycol-peg 400)) atorvastatin 20 mg tablet 20 mg PO DAILY 05/22/23 07/12/23 cholecalciferol (vitamin D3) 50 50 mcg PO DAILY 05/22/23 07/12/23 mcg (2,000 unit) capsule (Vitamin D3) famotidine 20 mg tablet 20 mg PO DAILY 05/22/23 07/12/23 fiber 2 tablet PO DAILY 05/22/23 07/12/23 levetiracetam 500 mg tablet 500 mg PO DAILY 05/22/23 07/12/23 losartan 100 1 tablet PO DAILY 05/22/23 07/12/23 mg-hydrochlorothiazide 25 mg tablet metoprolol succinate 25 mg 25 mg PO DAILY 05/22/23 07/12/23 tablet,extended release 24 hr multivit with minerals-iron 18 1 tablet PO DAILY 05/22/23 07/12/23 mg-folic ac 400 mcg-vit K 25 mcg tablet (Adults Multivitamin) oxybutynin chloride 10 mg 10 mg PO DAILY 05/22/23 07/12/23 tablet,extended release 24 hr potassium chloride 10 mEq 20 meq PO BID 05/22/23 07/12/23 tablet,extended release rivaroxaban 20 mg tablet (Xarelto) 20 mg PO QPM 05/22/23 07/12/23 sertraline 25 mg tablet 25 mg PO DAILY 05/22/23 07/12/23 vit C 250 mg-vit E 90 mg-zinc 40 1 cap PO DAILY 05/22/23 07/12/23 mg-copper 1 nf-fhffnl-ucinud capsule (PreserVision AREDS-2) ferrous sulfate 325 mg (65 mg 325 mg PO DAILY 07/12/23 07/12/23 iron) tablet (Feosol) Allergies Allergy/AdvReac Type Severity Reaction Status Date / Time No Known Allergies Allergy Verified 07/12/23 17:23 Review of Systems Review of Systems: CONSTITUTIONAL: Denies body aches, fever, chills, or sweats. EYES: Denies visual changes, redness, or discharge. ENT: Denies rhinorrhea, congestion, sore throat, or otalgia. CARDIOVASCULAR: Denies chest pain, palpitations, or edema. RESPIRATORY: Denies cough or dyspnea.+ left rib pain GASTROINTESTINAL: Denies abdominal pain, nausea, vomiting, or diarrhea. GENITOURINARY: Denies dysuria or hematuria. SKIN: Denies rash, itching, or wounds. MUSCULOSKELETAL: Denies back pain, or myalgia.+ left knee pain and bruising NEUROLOGIC: Denies headache, numbness, tingling, or weakness. PSYCH: Denies depression or anxiety. [facility] Past Medical History Medical History Chronic anticoagulation Chronic back pain Chronic constipation Chronic deep vein thrombosis (DVT) of popliteal vein of right lower extremity Chronic kidney disease, stage 3 Depression Diastolic dysfunction Gastroesophageal reflux disease Grade II internal hemorrhoids Hyperlipidemia Hypertension Insomnia Meningioma Status post resection in 2018. Mixed stress and urge urinary incontinence Obstructive sleep apnea on CPAP Osteopenia of multiple sites Paroxysmal atrial fibrillation Vitamin D deficiency disease Surgical History
== END 2023-07-12 18:39 | disposition home or self-care (01) ==
PROVIDERS: Emergency Provider Nurse Practitioner; PCP Emergency Medicine
DX: S80.02XA Contusion of left knee, initial encounter (principal); S20.212A Contusion of left front wall of thorax, initial encounter; S40.021A Contusion of right upper arm, initial encounter; W19.XXXA Unspecified fall, initial encounter; I12.9 Hypertensive chronic kidney disease with stage 1 through stage 4 chronic kidney disease, or unspecified chronic kidney disease; N18.30 Chronic kidney disease, stage 3 unspecified; K21.9 Gastro-esophageal reflux disease without esophagitis; E78.5 Hyperlipidemia, unspecified; G47.33 Obstructive sleep apnea (adult) (pediatric); M85.89 Other specified disorders of bone density and structure, multiple sites; I48.0 Paroxysmal atrial fibrillation; E55.9 Vitamin D deficiency, unspecified; Z96.653 Presence of artificial knee joint, bilateral; Z86.718 Personal history of other venous thrombosis and embolism; Z79.01 Long term (current) use of anticoagulants
CPT/HCPCS: 71101; 73560; 73562; 99214; G0463

== ENCOUNTER 2023-10-29 07:49 | Outpatient (CLI) | payer MEDICARE, SELFPAY ==
--- NOTE | ~2023-10-29 | DEXA_ITS ---
Bone Density Report Name: ISAIAH AHMADI Age: 83 Sex: Female Ethnicity: White Date of : 1940 Indication: postmenopausal; screening for osteoporosis; height loss; Referring Provider: STEPHANY POTTER Study: Bone densitometry was performed. Exam Date: October 29, 2023 Accession number: [id number] Bone Density: Region BMD T-score Z-score Classification AP Spine(L1-L4) 1.135 0.8 3.7 Normal Femoral Neck (Left) 0.768 -0.7 1.8 Normal Total Hip (Left) 1.021 0.6 3.0 Normal Femoral Neck (Right) 0.645 -1.8 0.7 Osteopenia Total Hip (Right) 0.919 -0.2 2.1 Normal Total Hip Mean 0.970 0.2 2.6 Normal World Health Organization criteria for BMD impression classify patients as: Normal (T-score at or above -1.0), Osteopenia (T-score between -1.0 and -2.5), or Osteoporosis (T-score at or below -2.5). 10-year Fracture Risk(1): Major Osteoporotic Fracture 13% Hip Fracture 3.5% Reported Risk Factors: [place] (), Neck BMD=0.645, BMI=41.9 (1) FRAX(R) Version 3.08. Fracture probability calculated for an untreated patient. Fracture probability may be lower if the patient has received treatment. Clinical Information Provided by Patient: Has used the following medications: Vitamin D, Calcium Patient maximum height was 63 Menopause Age: 43 No regular weight bearing exercise Does not regularly consume dairy products Drinks caffeinated beverages Onset of menses at age 11 Number of children 2 Impression: The patient has low bone mass, based on the Right Femoral Neck T-score. The patient has an estimated ten-year risk of hip fracture of 3.5% and an estimated ten-year risk of major fracture of 13%, based on the WHO FRAX algorithm. Discussion: BONE DENSITY IS LOW AT ONE OR MORE SKELETAL SITES. THE PATIENT'S BMD AND CLINICAL RISK FACTORS CONTRIBUTE TO THIS PATIENT'S INCREASED RISK OF FRACTURE. This patient's lowest T-score is low at one or more skeletal sites. It meets the World Health Organization's (WHO) criteria for ?low bone mass? (T-score between -1.0 and -2.5). The patient's 10-year risk of hip fracture as calculated by FRAX exceeds the threshold where pharmacological therapy is recommended by the National Osteoporosis Foundation (NOF). However, all treatment decisions require clinical judgment and consideration of individual patient factors, including patient preferences, comorbidities, previous drug use, risk factors not captured in the FRAX model (e.g., frailty, falls, vitamin D deficiency, increased bone turnover, interval significant decline in bone density) and possible under or overestimation of fracture risk by FRAX. The patient should follow a healthful lifestyle (good nutrition with adequate calcium and vitamin D, and appropriate weight-bearing exercise). Follow-Up: Consid
--- NOTE | ~2023-10-29 | MM_ITS ---
EXAMINATION: MM screening gina BI w bharati HISTORY: Screening mammogram TECHNIQUE: Craniocaudal and mediolateral oblique 3-D tomosynthesis images were obtained and synthetic 2-D images were generated. CAD analysis was submitted and interpreted. COMPARISON: 11/24 2020, 08/20/2019 bilateral screening mammogram examinations BREAST PARENCHYMAL COMPOSITION: The breasts are almost entirely fatty. FINDINGS: There is no evidence of suspicious mass, calcification, or architectural distortion to sugg est malignancy in either breast. There has been no suspicious interval change. IMPRESSION: 1. No mammographic evidence of malignancy. 2. Recommend routine screening mammography in one year. BI-RADS Category 1: Negative Reviewed, dictated and finalized at location A.
== END 2023-10-29 07:50 | disposition home or self-care (01) ==
PROVIDERS: PCP Emergency Medicine; Visit Provider Emergency Medicine
DX: Z12.31 Encounter for screening mammogram for malignant neoplasm of breast (principal); Z78.0 Asymptomatic menopausal state; M85.88 Other specified disorders of bone density and structure, other site
CPT/HCPCS: 77063; 77067; 77080

== ENCOUNTER 2024-05-14 08:11 | Emergency (ER) | payer MEDICARE, SELFPAY ==
--- NOTE | ~2024-05-14 | XR_ITS ---
XR chest 2V Ordering provider: Jeanette Rouse APRN History: 84 years Female with . cough weakness . Comparison: None. FINDINGS: MEDIASTINUM: The cardiac silhouette is not enlarged. Prominent both kenya. LUNGS: No infiltrates, effusions or pneumothorax. Slightly prominent bronchovascular markings in the lower lobes which may indicate bronchitis. OTHER: No free air under the diaphragm. Degenerative the spine. IMPRESSION: Slightly prominent bronchovascular markings in the lower lobes which may indicate bronchitis. Follow- up advised. No acute cardiopulmonary pathology. Reviewed, dictated and finalized at location A. CIATE PROGRAMMER IMPRESSION: Slightly prominent bronchovascular markings in the lower lobes which may indica te bronchitis. Follow-up advised. No acute cardiopulmonary pathology.
--- NOTE | 2024-05-14 08:18 | ED.URI ---
HPI - URI/Sore Throat General Chief Complaint: Upper Respiratory Infection Stated Complaint: chills/achey x 4 days Source: patient Mode of arrival: ambulatory Limitations: no limitations History of Present Illness HPI Narrative: 84 y/o female with hx CVA, CKD, and paroxysmal afib presented for c/o body aches, chills, nausea, abdominal discomfort across upper abdomen, and occasional cough x4 days. The Cough is occasionally productive of phlegm. Reports fatigue and urinary incontinence which is not new for her. Denies chest pain, palpitations, vomiting or diarrhea. Not taking anything for symptoms. Related Data Home Medications Medication Instructions Recorded Confirmed calcium carbonate 400 mg PO BID PRN Acid Reflux 08/30/22 05/14/24 docusate sodium 250 mg capsule 250 mg PO DAILY 08/30/22 05/14/24 (Stool Softener) peg 400-propylene glycol 0.4 %-0.3 1 drp ophthalmic (eye) BID 08/30/22 05/14/24 % eye gel drops (Dry Eye Relief (propylene glycol-peg 400)) cholecalciferol (vitamin D3) 50 50 mcg PO DAILY 05/22/23 05/14/24 mcg (2,000 unit) capsule (Vitamin D3) famotidine 20 mg tablet 20 mg PO DAILY 05/22/23 05/14/24 fiber 2 tablet PO DAILY 05/22/23 05/14/24 multivit with minerals-iron 18 1 tablet PO DAILY 05/22/23 05/14/24 mg-folic ac 400 mcg-vit K 25 mcg tablet (Adults Multivitamin) vit C 250 mg-vit E 90 mg-zinc 40 1 cap PO DAILY 05/22/23 05/14/24 mg-copper 1 [id number]-ryrcpt-xeyifj capsule (PreserVision AREDS-2) ferrous sulfate 325 mg (65 mg 325 mg PO DAILY 07/12/23 05/14/24 iron) tablet (Feosol) Allergies Allergy/AdvReac Type Severity Reaction Status Date / Time No Known Allergies Allergy Verified 05/14/24 08:28 Review of Systems Review of Systems: CONSTITUTIONAL: Reports body aches, fever, chills EYES: Denies visual changes, redness, or discharge. ENT: Reports rhinorrhea, congestion,Denies sore throat, or otalgia. CARDIOVASCULAR: Denies chest pain, palpitations, or edema. RESPIRATORY: Reports cough, denies sob, wheezing. GASTROINTESTINAL: Reports upper abdominal cramping and nausea Denies vomiting, or diarrhea. GENITOURINARY: Denies dysuria or hematuria. SKIN: Denies rash MUSCULOSKELETAL: Reports lower back pain NEUROLOGIC: Denies headache, numbness, tingling, or weakness. All systems reviewed & are unremarkable except as noted in HPI and below PMFSH Past Medical History Medical History Chronic anticoagulation Chronic back pain Chronic constipation Chronic deep vein thrombosis (DVT) of popliteal vein of right lower extremity Chronic kidney disease, stage 3 Depression Diastolic dysfunction Gastroesophageal reflux disease Grade II internal hemorrhoids Hyperlipidemia Hypertension Insomnia Meningioma Status post resection in 2018. Mixed stress and urge urinary incontinence Obstructive sleep apnea on CPAP Osteopenia of multiple sites Paroxysmal atrial fibrillation Vitamin D deficiency disease Surgical History Surgical History History of appendectomy (194) History of bilateral knee replacement History of cataract surgery History of cholecystectomy History of exam under anesthesia with hemorrhoid banding (04/2021) History of resection of meningioma (04/2018) Family History Family History Father Acute myocardial infarction, Onset Age: 76 Mother Carcinoma of colon, Onset Age: 68 Son No problems noted. Son No problems noted. Son No problems noted. Social History Social History Social History: Surrogate Decision Maker: Hayes Mcgrath, spouse. Code Status: Full Code. Smoking packs per day: 0 Smoking cigarettes per day: 0.0 Years smoked: 0 Smoking pack-years: 0.00 Smoking status: Never smoker Second hand tobacco smoke exposure: No Alcohol intake: never Substance use: never Substance use type: does not use Do You Feel Safe in your Home?: Yes Lack of Transportation: No Lack of Food: Never True Current Housing: Decline to Answer Concerned About Future Housing: Decline to Answer Difficulty Paying Gas/Electric Bills: Decline to Answer Difficulty Paying for Meds: Decline to Answer Currently Unemployed: No Education: Decline to Answer Difficulty w/ Childcare or Family Care: Decline to Answer Living arrangements: with family Additional living arrangements comments: Lives with in [place]. 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 Spiritual care concerns: No Comments At time of signature, I have reviewed and agree with nursing past medical, surgical, social and family history unless otherwise noted. Please see nursing chart for further information. There is no relevant family history pertinent to the presenting complaint Exam Narrative: GENERAL: Well-appearing, in no acute distress. EYES: EOMI. No redness or drainage. Conjunctivae normal. ENT: Mucous membranes pink and moist. Rhinorrhea noted. NECK: Normal AROM. Supple. CHEST: No respiratory distress. Lungs clear to all frias. Speaks full sentences HEART: Regular rate and rhythm. ABDOMEN: Soft, nontender, nondistended, normal active bowel sounds. EXTREMITIES: Normal range of motion. No edema. Walks with cane SKIN: Warm, dry, no rash. Capillary refill normal. NEURO: Alert and oriented x3. PSYCH: Normal affect. Course Course Emergency Course: Patient is aware of diagnosis, understands and agrees to treatment plan. Anticipatory guidance given. Patient agrees to follow-up as directed and is aware of reasons to seek care at the emergency department. Portions of this record may have been created with voice recognition software Level of Care: Express Care Visit Vital Signs Vital signs: Vital Signs Temperature 97.5 F L 05/14/24 08:26 Respiratory Rate 16 05/14/24 08:26 Blood Pressure 139/65 05/14/24 08:26 Pulse Oximetry 97 05/14/24 08:26 Temperature 97.5 F L 05/14/24 08:26 Respiratory Rate 16 05/14/24 08:26 Blood Pressure 139/65 05/14/24 08:26 Pulse Oximetry 97 05/14/24 08:26 Oxygen Delivery Room Air 05/14/24 08:31 MDM - URI/Sore Throat MDM Narrative Medical decision making narrative: Discussed physical exam findings and CXR. Discussed possibility of viral infection which is not treated with abx. v/u. Advised supportive measures and signs/symptoms to go to the ER. Pt is appropriate for outpt treatment and f/u. Differential Diagnosis Differential diagnosis: Likely upper respiratory infection, sinusitis, viral infection, bronchitis, influenza and other (pneumonia) Lab Data Labs: Lab Results 11/13/24 11/13/24 Range/Units 08:22 08:55 POC Urine Color Yellow POC Urine Clarity Clear POC Urine pH 6.5 POC Ur Specif [place] 1.020 POC Urine Protein Negative (Negative) POC Ur Glucose (UA) Negative (Negative) POC Urine Ketones Negative (Negative) POC Urine Blood Negative (Negative) POC Urine Nitrite Negative (Negative) POC Urine Bilirubin Negative (Negative) POC Urine Urobilinogen 0.2 POC U Leukocyte Esteras Trace (Negative) POC Influenza A Ag Negative (Negative) POC Influenza B Ag Negative (Negative) POC SARS CoV-2 Ag Negative (Negative) Imaging Data Radiologist's impression: Patient: Nelly Mcgrath : 1940 MR#: [id number] Age: 84 Acct:[id number] Loc: [facility] ADM Date: 05/14/24Attending Dr: Ordering Physician: Jeanette Rouse APRN Date of Service: 05/14/24 Procedure(s): XR chest 2V Accession Number(s): [id number] cc: Jeanette Rouse APRN; Selvin Henley MD~ XR chest 2V Ordering provider: Jeanette Rouse APRN History: 84 years Female with . cough weakness . Comparison: None. FINDINGS: MEDIASTINUM: The cardiac silhouette is not enlarged. Prominent both ken[place]. LUNGS: No infiltrates, effusions or pneumothorax. Slightly prominent bronchovascular markings in the lower lobes which may indicate bronchitis. OTHER: No free air under the diaphragm. Degenerative the spine. IMPRESSION: Slightly prominent bronchovascular markings in the lower lobes which may indicate bronchitis. Follow-up advised. No acute cardiopulmonary pathology. Discharge Plan Discharge Clinical Impression: Bronchitis Patient Disposition: Home, Self-Care Condition: Stable Instructions: Antibiotic Form, Acute Bronchitis (ED) Additional Instructions: Acute bronchitis can be contagious because it is usually caused by infection with a virus or bacteria. It is usually for a few days but you can be contagious for up to one week. Avoid crowds until you do not have a fever and symptoms are improved Recommendations: over the counter Cough syrup may cause drowsiness; avoid driving or take it at night time. Tylenol 1000mg every 8 hours as needed for pain/fever Symptomatic treatment includes: rest, fluids, and increase humidity of the air at home. Flonase spray and Zyrtec (or Claritin/Eladia) if you have nasal congestion/drainage Follow up with your primary care provider as scheduled in 1 week Go to the ER for worsening symptoms or concerns Prescriptions: New amoxicillin-pot clavulanate 875-125 mg tablet 1 tablet PO Q12H 7 Days Qty: 14 0RF No Action ferrous sulfate [Feosol] 325 mg (65 mg iron) Tablet 325 mg PO DAILY Dry Eye Relief (PG-PEG 400) 0.4-0.3 % drops,gel 1 drp ophthalmic (eye) BID docusate sodium [Stool Softener] 250 mg capsule 250 mg PO DAILY calcium carbonate 400 mg calcium (1,000 mg) tablet,chewable 400 mg PO BID PRN (Reason: Acid Reflux) levetiracetam 500 mg tablet See Rx Instructions .ROUTE .COMPLEX Qty: 180 4RF Dose Instruction: Take 1 tablet by mouth twice daily Rx Instructions: Take 1 tablet by mouth twice daily atorvastatin 40 mg tablet 40 mg PO QHS Qty: 90 3RF famotidine 20 mg Tablet 20 mg PO DAILY fiber Tablet,Chewable 2 tablet PO DAILY cholecalciferol (vitamin D3) [Vitamin D3] 50 mcg (2,000 unit) Capsule 50 mcg PO DAILY PreserVision AREDS-2 250-90-40-1 mg Capsule 1 cap PO DAILY Adults Multivitamin 18 mg iron-400 mcg-25 mcg Tablet 1 tablet PO DAILY losartan-hydrochlorothiazide 100-25 mg tablet See Rx Instructions .ROUTE .COMPLEX Qty: 90 2RF Dose Instruction: Take 1 tablet by mouth once daily Rx Instructions: Take 1 tablet by mouth once daily sertraline 25 mg tablet See Rx Instructions .ROUTE .COMPLEX Qty: 90 2RF Dose Instruction: Take 1 tablet by mouth once daily Rx Instructions: Take 1 tablet by mouth once daily Xarelto 20 mg tablet See Rx Instructions .ROUTE .COMPLEX Qty: 90 2RF Dose Instruction: TAKE 1 TABLET BY MOUTH ONCE DAILY WITH EVENING MEAL Rx Instructions: TAKE 1 TABLET BY MOUTH ONCE DAILY WITH EVENING MEAL metoprolol succinate 25 mg tablet extended release 24 hr See Rx Instructions .ROUTE .COMPLEX Qty: 90 2RF Dose Instruction: Take 1 tablet by mouth once daily Rx Instructions: Take 1 tablet by mouth once daily potassium chloride 10 mEq tablet extended release See Rx Instructions .ROUTE .COMPLEX Qty: 360 2RF Dose Instruction: Take 2 tablets by mouth twice daily Rx Instructions: Take 2 tablets by mouth twice daily Follow-up/Referrals: Selvin Henley MD [Primary Care Provider] - Time of Disposition: 09:10
[2024-05-14 08:26] VITALS: BP 139/65; RESP 16; TEMP 36.4; O2SAT 97
[2024-05-14 08:42] LABS: EDCOVIDSCREEN Negative (Negative); EDINFLUASCREEN Negative (Negative); EDINFLUBSCREEN Negative (Negative)
[2024-05-14 09:08] LABS: EDUAAPPEAR Clear; EDUABILI Negative (Negative); EDUABLOOD Negative (Negative); EDUACOLOR1 Yellow; EDUAGLUCOSE Negative (Negative); EDUAKETONE Negative (Negative); EDUALEUKO Trace (Negative); EDUANITRATE Negative (Negative); EDUAPH 6.5; EDUAPROTEIN Negative (Negative); EDUAUROBILI 0.2
== END 2024-05-14 09:12 | disposition home or self-care (01) ==
PROVIDERS: Emergency Provider Nurse Practitioner Family; PCP Emergency Medicine
DX: J40 Bronchitis, not specified as acute or chronic (principal); B96.89 Other specified bacterial agents as the cause of diseases classified elsewhere; Z20.822 Contact with and (suspected) exposure to COVID-19; I48.0 Paroxysmal atrial fibrillation; I12.9 Hypertensive chronic kidney disease with stage 1 through stage 4 chronic kidney disease, or unspecified chronic kidney disease; N18.30 Chronic kidney disease, stage 3 unspecified; K21.9 Gastro-esophageal reflux disease without esophagitis; E78.5 Hyperlipidemia, unspecified; G47.33 Obstructive sleep apnea (adult) (pediatric); M85.80 Other specified disorders of bone density and structure, unspecified site; E55.9 Vitamin D deficiency, unspecified; Z86.73 Personal history of transient ischemic attack (TIA), and cerebral infarction without residual deficits; Z86.718 Personal history of other venous thrombosis and embolism; Z96.653 Presence of artificial knee joint, bilateral
CPT/HCPCS: 71046; 81003; 87077; 87086; 87186; 87426; 87804; 99213; G0463

== ENCOUNTER 2024-06-11 13:24 | Outpatient (CLI) | payer MEDICARE, SELFPAY ==
--- NOTE | ~2024-06-11 | MR_ITS ---
EXAMINATION: MR lumbar spine wo con DATE: 06/11/2024 14:14 INDICATION: Low back pain and lumbar radiculopathy TECHNIQUE: Magnetic resonance imaging (MRI) of the lumbar spine was performed without intravenous con trast. Sequences included sagittal T2-weighted FSE, sagittal T2-weighted FS FSE, sagittal T1-weighted FSE, and axial T2-weighted FSE. 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 Also unchanged 1 mm anterolisthesis T10 and T11, 3 mm retrolisthesis L1 on L2 and L2 on L3 and 4 mm anterolisthesis L3 on L4. Unchanged chronic T12 burst fracture with 40% vertebral body height lo ss and 2 mm retropulsion. Lumbar vertebral body heights are normal. Normal marrow signal. There is anterior fusion across portions of the severely narrowed T8-T9 disc space along with fusion across th e bilateral T8-T9 facet joints. Additional severe disc height loss at L2-L3, L3-L4 and L5-S1. Moderat e disc height loss at T9-T10 and mild disc height loss at T10-T11, L1-L2 and L4-L5. The conus medulla ris terminates at L1-L2. There is normal signal in the caudal spinal cord. There is epidural lipomato sis from T12-L1 through L2-L3. 1.5 cm T2 hyperintense cyst at the upper pole of the right kidney. The re is moderate left renal atrophy. Paravertebral soft tissues are unremarkable. The following disc le vels are specifically discussed: T11-T12: Disc is mildly bulging and there is mild retropulsion of the cephalad posterior wall of the T12 vertebral body. There is moderate right and severe left facet osteoarthritis. There is mild bilat eral neural foraminal stenosis. There is mild central canal stenosis. T12-L1: The disc does not extend beyond the endplate margin. There is hypertrophy of the ligamentum f lavum. There is mild left and moderate right facet joint osteoarthritis. There is minimal bilateral neural foraminal stenosis. There is mild central canal stenosis. L1-L2: Disc is bulging with annular fissure. There is hypertrophy of the ligamentum flavum. There is moderate bilateral facet joint osteoarthritis. There is moderate bilateral neural foraminal stenosis. There is moderate central canal stenosis. L2-L3: Disc is bulging with annular fissure. There is hypertrophy of the ligamentum flavum. There is severe bilateral facet joint osteoarthritis. There is moderate right and severe left neural foraminal stenosis. There is severe central canal stenosis. L3-L4: Disc is bulging with annular fissure. There is hypertrophy of the ligamentum flavum. There is severe bilateral facet joint osteoarthritis. There is moderate bilateral neural foraminal stenosis. There is moderate central canal stenosis. L4-L5: Disc is bulging. There is severe bilateral facet joint osteoarthritis. There is moderate right and mild left neural foraminal stenosis. There is mild central canal stenosis. L5-S1: Annular fissure. The disc does not extend beyond the more posterior S1 endplate margin. There is severe bilateral facet joint osteoarthritis. There is mild to moderate bilateral neural foraminal stenosis. There is no central canal stenosis. IMPRESSION: 1. Minimal progression of severe lumbar spondylosis. Reviewed, dictated and finalized at location A. DUSTER
== END 2024-06-11 13:25 | disposition home or self-care (01) ==
LOC: GOSHIMG 13:25
PROVIDERS: PCP Emergency Medicine; Visit Provider Nurse Practitioner Family
DX: M47.26 Other spondylosis with radiculopathy, lumbar region (principal)
CPT/HCPCS: 72148

== ENCOUNTER 2024-12-24 14:19 | Outpatient (CLI) | payer MEDICARE, SELFPAY ==
--- NOTE | ~2024-12-24 | MM_ITS ---
EXAMINATION: MM screening gina BI w bharati HISTORY: Screening mammogram TECHNIQUE: Craniocaudal and mediolateral oblique 3-D tomosynthesis images were obtained and synthetic 2-D images were generated. CAD analysis was submitted and interpreted. COMPARISON: 10/29/2023, 11/24/2020, 08/20/2019 BREAST PARENCHYMAL COMPOSITION:Not Dense. The breasts are almost entirely fatty FINDINGS: No suspicious mass, calcification, or architectural distortion are identified in either mark ast to suggest malignancy. There has been no suspicious interval change. IMPRESSION: No mammographic evidence of malignancy. Recommend routine screening mammography in one year. BI-RADS Category 1: Negative Reviewed, dictated and finalized at location .
== END 2024-12-24 14:20 | disposition home or self-care (01) ==
LOC: ANHIMG 14:22
PROVIDERS: PCP Emergency Medicine; Visit Provider Emergency Medicine
DX: Z12.31 Encounter for screening mammogram for malignant neoplasm of breast (principal)
CPT/HCPCS: 77063; 77067

== ENCOUNTER 2025-04-24 09:31 | Emergency (ER) | payer MEDICARE, SELFPAY ==
[2025-04-24 09:49] VITALS: BP 122/58; PULSE 65; RESP 16; TEMP 36.8; O2SAT 99
--- NOTE | 2025-04-24 10:41 | ED.GENADULT ---
HPI - General Adult General Chief complaint: Skin/Abscess/Foreign Body Stated complaint: R TOE PAIN Time Seen by Provider: 04/24/25 09:58 Source: patient and family Mode of arrival: ambulatory Limitations: no limitations History of Present Illness HPI narrative: Pt present for evaluation of redness to the fourth digit of the right foot. Pt states a few nights ago her toenail got stuck on her sheet. Yesterday a family member attempted to trim her nails. The family member noted what appeared to be a piece of loose skin to the fourth digit of the right foot. Pt and family member were concerned about infection, which prompted them to come in today. No fever, chills, or drainage from the affected area. She is not diabetic. Related Data Home Medications ?Medication ?Instructions ?Recorded ?Confirmed ?Last Taken ?Type calcium carbonate 400 mg PO BID PRN Acid Reflux 08/30/22 04/24/25 Unknown History docusate sodium 250 mg capsule 250 mg PO DAILY 08/30/22 04/24/25 Unknown History (Stool Softener) peg 400-propylene glycol 0.4 %-0.3 1 drp ophthalmic (eye) BID 08/30/22 04/24/25 Unknown History % eye gel drops (Dry Eye Relief (propylene glycol-peg 400)) cholecalciferol (vitamin D3) 50 50 mcg PO DAILY 05/22/23 04/24/25 Unknown History mcg (2,000 unit) capsule (Vitamin D3) famotidine 20 mg tablet 20 mg PO DAILY 05/22/23 04/24/25 Unknown History fiber 2 tablet PO DAILY 05/22/23 04/24/25 Unknown History multivit with minerals-iron 18 1 tablet PO DAILY 05/22/23 04/24/25 Unknown History mg-folic ac 400 mcg-vit K 25 mcg tablet (Adults Multivitamin) vit C 250 mg-vit E 90 mg-zinc 40 1 cap PO DAILY 05/22/23 04/24/25 Unknown History mg-copper 1 [id number] capsule (PreserVision AREDS-2) ferrous sulfate 325 mg (65 mg 325 mg PO DAILY 07/12/23 04/24/25 Unknown History iron) tablet (Feosol) Allergies Allergy/AdvReac Type Severity Reaction Status Date / Time No Known Allergies Allergy Verified 04/24/25 10:03 Review of Systems Review of Systems: CONSTITUTIONAL: Denies fever, chills, or sweats. EYES: Denies visual changes, redness, or discharge. ENT: Denies rhinorrhea, congestion, sore throat, or otalgia. CARDIOVASCULAR: Denies chest pain, palpitations, or edema. RESPIRATORY: Denies cough or dyspnea. GASTROINTESTINAL: Denies abdominal pain, nausea, vomiting, or diarrhea. GENITOURINARY: Denies dysuria or hematuria. SKIN: Reports loose skin to the 4th digit of the right MUSCULOSKELETAL: Denies back pain, joint pain, or myalgia. NEUROLOGIC: Denies headache, numbness, dizziness, or weakness. PSYCHIATRIC: Denies anxiety or depression. [facility] Past Medical History Medical History Brain TIA AMS (altered mental status) UTI (urinary tract infection) URI with cough and congestion Chronic anticoagulation Chronic kidney disease, stage 3 Paroxysmal atrial fibrillation Hyperlipidemia Gastroesophageal reflux disease Insomnia Chronic deep vein thrombosis (DVT) of popliteal vein of right lower extremity Osteopenia of multiple sites Obstructive sleep apnea on CPAP Mixed stress and urge urinary incontinence Depression Diastolic dysfunction Grade II internal hemorrhoids Hypertension Chronic constipation Chronic back pain Vitamin D deficiency disease Meningioma Status post resection in 2018. Surgical History Surgical History History of bilateral knee replacement History of resection of meningioma (04/2018) History of exam under anesthesia with hemorrhoid banding (04/2021) History of cataract surgery History of cholecystectomy History of appendectomy (1941) Family History Family History Father Acute myocardial infarction, Onset Age: 76 Mother Carcinoma of colon, Onset Age: 68 Son No problems noted. Son No problems noted. Son No problems noted. Social History Social History Social History: Surrogate Decision Maker: Hayes Mcgrath, spouse. Code Status: Full Code. Smoking packs per day: 0 Smoking cigarettes per day: 0.0 Years smoked: 0 Smoking pack-years: 0.00 Smoking status: Never smoker Second hand tobacco smoke exposure: No Alcohol intake: never Substance use: never Substance use type: does not use Do You Feel Safe in your Home?: Yes Lack of Transportation: No Lack of Food: Never True Current Housing: Decline to Answer Concerned About Future Housing: Decline to Answer Difficulty Paying Gas/Electric Bills: Decline to Answer Difficulty Paying for Meds: Decline to Answer Currently Unemployed: No Education: Decline to Answer Difficulty w/ Childcare or Family Care: Decline to Answer Living arrangements: with family Additional living arrangements comments: Lives with in [place]. 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 Spiritual care concerns: No Exam Narrative: GENERAL: Well-appearing, well-nourished, and in no acute distress. HEAD: Normocephalic, atraumatic. EYES: PERRLA and EOMI. ENT: Nares clear, no rhinorrhea or epistaxis. Mucous membranes moist. Oropharynx without tonsillar hypertrophy exudate or other lesions. Bilateral TMs pearly singer nonbulging NECK: Supple. No adenopathy or masses. No carotid bruits or JVD CHEST: Clear to auscultation. No respiratory distress. No wheezes rales or rhonchi HEART: Regular rate and rhythm. No murmur heard. Normal peripheral pulses. ABDOMEN: Soft, nontender, nondistended, normal active bowel sounds. EXTREMITIES: Normal range of motion. No edema. SKIN: there is a 3 mm area of redness noted to the lateral aspect of the 4th digit of the right foot. The nail plates of both feet are darkened in appearance with thickening present NEURO: No focal deficits. Alert and oriented x3. PSYCH: Normal mood and affect. Course Course Emergency Course: this is an 84-year-old female who presented for evaluation redness to the 4th digit of the right foot. It appears that the nail plate of the 5th digit is rubbing on the 4th. I will provide her with a contact information for Podiatry. Will discharge with cephalexin. Follow-up with primary provider as well. Go to the ER for worsening symptoms. Patient in agreement with plan of care. Level of Care: Express Care Visit Vital Signs Vital signs: Vital Signs Temperature 36.8 C 04/24/25 09:49 Pulse Rate 65 04/24/25 09:49 Respiratory Rate 16 04/24/25 09:49 Blood Pressure 122/58 L 04/24/25 09:49 Pulse Oximetry 99 04/24/25 09:49 Temperature 36.8 C 04/24/25 09:49 Pulse Rate 65 04/24/25 09:49 Respiratory Rate 16 04/24/25 09:49 Blood Pressure 122/58 L 04/24/25 09:49 Pulse Oximetry 99 04/24/25 09:49 Medical Decision Making Vital Signs Vital Signs: Vital Signs Temperature 36.8 C 04/24/25 09:49 Pulse Rate 65 04/24/25 09:49 Respiratory Rate 16 04/24/25 09:49 Blood Pressure 122/58 L 04/24/25 09:49 Pulse Oximetry 99 04/24/25 09:49 Temperature 36.8 C 04/24/25 09:49 Pulse Rate 65 04/24/25 09:49 Respiratory Rate 16 04/24/25 09:49 Blood Pressure 122/58 L 04/24/25 09:49 Pulse Oximetry 99 04/24/25 09:49 Discharge Plan Discharge Clinical Impression: Abrasion of toe Qualifiers: Encounter type: initial encounter Laterality: right Qualified Code(s): S90.414A - Abrasion, right lesser toe(s), initial encounter Patient Disposition: Home Condition: Stable Instructions: Antibiotic Form, Abrasion (ED) Additional Instructions: PLEASE FOLLOW UP WITH PODIATRY TO HAVE YOUR NAILS TRIMMED Patient Language: Khmer Prescriptions: New cephalexin 500 mg capsule 500 mg PO Q8H 7 Days Qty: 21 0RF No Action ferrous sulfate [Feosol] 325 mg (65 mg iron) Tablet 325 mg PO DAILY Dry Eye Relief (PG-PEG 400) 0.4-0.3 % drops,gel 1 drp ophthalmic (eye) BID docusate sodium [Stool Softener] 250 mg capsule 250 mg PO DAILY calcium carbonate 400 mg calcium (1,000 mg) tablet,chewable 400 mg PO BID PRN (Reason: Acid Reflux) levetiracetam 500 mg tablet See Rx Instructions .ROUTE .COMPLEX Qty: 180 4RF Dose Instruction: Take 1 tablet by mouth twice daily Rx Instructions: Take 1 tablet by mouth twice daily lidocaine 5 % adhesive patch,medicated 1 patch topical DAILY Qty: 15 2RF Rx Instructions: leave on most painful area for up to 12 hrs hydrocortisone [Anusol-HC] 2.5 % cream with perineal applicator 1 applic RECTAL DAILY PRN (Reason: hemorrhoids) Qty: 30 0RF famotidine 20 mg Tablet 20 mg PO DAILY fiber Tablet,Chewable 2 tablet PO DAILY cholecalciferol (vitamin D3) [Vitamin D3] 50 mcg (2,000 unit) Capsule 50 mcg PO DAILY PreserVision AREDS-2 250-90-40-1 mg Capsule 1 cap PO DAILY Adults Multivitamin 18 mg iron-400 mcg-25 mcg Tablet 1 tablet PO DAILY metoprolol succinate 25 mg tablet extended release 24 hr See Rx Instructions .ROUTE .COMPLEX Qty: 90 2RF Dose Instruction: Take 1 tablet by mouth once daily Rx Instructions: Take 1 tablet by mouth once daily losartan-hydrochlorothiazide 100-25 mg tablet See Rx Instructions .ROUTE .COMPLEX Qty: 90 2RF Dose Instruction: Take 1 tablet by mouth once daily Rx Instructions: Take 1 tablet by mouth once daily Xarelto 20 mg tablet See Rx Instructions .ROUTE .COMPLEX Qty: 90 2RF Dose Instruction: TAKE 1 TABLET BY MOUTH ONCE DAILY WITH EVENING MEAL Rx Instructions: TAKE 1 TABLET BY MOUTH ONCE DAILY WITH EVENING MEAL sertraline 25 mg tablet See Rx Instructions .ROUTE .COMPLEX Qty: 90 2RF Dose Instruction: Take 1 tablet by mouth once daily Rx Instructions: Take 1 tablet by mouth once daily potassium chloride 10 mEq tablet extended release See Rx Instructions .ROUTE .COMPLEX Qty: 360 2RF Dose Instruction: Take 2 tablets by mouth twice daily Rx Instructions: Take 2 tablets by mouth twice daily atorvastatin 40 mg tablet See Rx Instructions .ROUTE .COMPLEX Qty: 90 1RF Dose Instruction: TAKE 1 TABLET BY MOUTH EVERY DAY AT BEDTIME Rx Instructions: TAKE 1 TABLET BY MOUTH EVERY DAY AT BEDTIME Follow-up/Referrals: [place],Hema Broussard DPM [Non-Staff, Unknown] Selvin Henley MD [Primary Care Provider, Internal Medicine] Time of Disposition: 10:40
== END 2025-04-24 10:46 | disposition home or self-care (01) ==
PROVIDERS: Emergency Provider Nurse Practitioner; PCP Emergency Medicine
DX: S90.414A Abrasion, right lesser toe(s), initial encounter (principal); I48.0 Paroxysmal atrial fibrillation; E78.5 Hyperlipidemia, unspecified; I12.9 Hypertensive chronic kidney disease with stage 1 through stage 4 chronic kidney disease, or unspecified chronic kidney disease; N18.30 Chronic kidney disease, stage 3 unspecified; Z79.899 Other long term (current) drug therapy; X58.XXXA Exposure to other specified factors, initial encounter
CPT/HCPCS: 99213; G0463